=== PATIENT | female | born 1980 | race Caucasian/White ===

== ENCOUNTER 2021-11-27 09:09 | Emergency (ER) | payer SELFPAY ==
[2021-11-27 09:13] VITALS: BP 114/75; PULSE 78; RESP 17; TEMP 36.3; O2SAT 98; BMI 23.8
--- NOTE | 2021-11-27 09:37 | EX.ED.GENINJ ---
HPI <JOSE D Guzman - Last Filed: 11/27/21 10:03> History of Present Illness Chief Complaint: Laceration Narrative Narrative: 41-year-old female with no significant ankle history presents the [facility] apartment with a laceration to the right second third and fourth fingers. Patient's right second and fourth fingers were superficial however the tip of the third digit is more complicated. There is more blood. Patient states that she still has movement of all the extremities however the blood scared her and she is here for evaluation. Patient's tetanus vaccination is not up-to-date. Patient is here for evaluation [facility] <JOSE D Guzman - Last Filed: 11/27/21 10:03> [facility] Medical History no medical history Home Medications NK 11/27/21 [History Last Taken Unknown] Allergy/AdvReac Type Severity Reaction Status Date / Time Penicillins Allergy Hives Verified 11/27/21 09:11 Surgical History no surgical history Social History Smoking Status: Current every day smoker tobacco type: cigarettes ROS <JOSE D Guzman - Last Filed: 11/27/21 10:03> ROS ED ROS Narrative Constitutional: Negative for fever, chills, weight loss, weakness Eyes: Negative for vision loss, vision change, double vision ENT: Negative for any sore throat, ear pain, congestion Cardiovascular: Negative for any chest pain, tightness, palpitations Respiratory: Negative for any cough, sputum production, hemoptysis, dyspnea, dyspnea on exertion, orthopnea Gastrointestinal: Negative for any abdominal pain, nausea, vomiting, diarrhea, constipation, blood in stool, blood in vomit : Negative for any urinary frequency, dysuria, retention, blood in urine Muscle skeletal: Negative for any muscle joint pain, stiffness, myalgias, arthralgias, neck pain, back pain Neurological: Negative for any headache, syncope, numbness or tingling, dizziness Skin: Negative for any rashes, lumps, itching, abrasions. Positive for laceration to the right second third and fourth digit. Psychiatric: Negative for any depression, anxiety, stress, suicidal ideation, homicidal ideation Hematologic: Negative for any easy bruising, excessive bruising, easy bleeding Allergies: Negative for any eczema, hives, rash EXAM <JOSE D Guzman - Last Filed: 11/27/21 10:03> Physical Exam Narrative Exam Narrative: Vital signs reviewed. Extremities: No peripheral edema, no signs of gross trauma or deformity. Active full range of motion of all extremities. Patient has lacerations on the dorsal aspect of the second third and fourth digit. The patient's second laceration is superficial, patient's third digit is 1.5 cm long above the DIP joint on the dorsal aspect, this is the most severe of the lacerations however patient is able to flex and extend the entire finger. Patient's fourth digit has a corner of the distal nail however no nailbed injury. The only injury requiring sutures is on the third digit on the right hand. Neuro: Cranial nerves II through XII intact, no focal neurological deficits. Skin: Clean dry and intact with no rash, purpura, petechiae, vesicles or pustules. Backs/flank: No CVA tenderness, no midline spinal tenderness, no deformity. Psych: Normal mood and affect. No SI, HI or acute psychosis. Const Vital Signs: 11/27/21 09:13 Temperature 97.4 F L Temperature Source Temporal Pulse Rate 78 Respiratory Rate 17 Blood Pressure 114/75 Blood Pressure Mean 88 Pulse Ox 98 Oxygen Delivery Method Room Air <Dr. Bishop Aleman, DO - Last Filed: 11/27/21 10:11> Physical Exam Const Vital Signs: 11/27/21 09:13 Temperature 97.4 F L Temperature Source Temporal Pulse Rate 78 Respiratory Rate 17 Blood Pressure 114/75 Blood Pressure Mean 88 Pulse Ox 98 Oxygen Delivery Method Room Air PROC <JOSE D Guzman - Last Filed: 11/27/21 10:03> Procedures Lacerations Right third digit, hand: Length: 1.5 cm Depth: Skin Shape: Linear Prep: Sterile Conditions and Shure-Clens Laceration repair: Lidocaine Irrigated (ml): 200 Number of Sutures/Madina: 4 Suture Information: Ethilon Comment: Patient tolerated well. Sterile gloves, sterile drapes were used [facility] <JOSE D Guzman - Last Filed: 11/27/21 10:03> [facility] Treatment and Re-Evaluation Narrative: Patient appears well, patient appears nontoxic, vital signs are stable. Patient presents the [facility] with lacerations to the right second third and fourth digit. The right third digit however did need suture repair. This was a 1.5 cm horizontal laceration, patient has full range of motion of the right third digit, no signs or symptoms of tendon involvement. This area was cleansed, irrigated, search for foreign body, none were found. It was anesthetized, with sterile gloves, sterile drapes, 4 simple interrupted sutures of 5-0 Ethilon were placed. Patient placed in a finger splint, and have these removed in 10 to 12 days. <Dr. Bishop Aleman, DO - Last Filed: 11/27/21 10:11> [facility] Narrative Medical decision making narrative: I have personally performed a face to face assessment of the patient and have reviewed the CAL Note. I performed a substantive portion of the visit including all aspects of the following. My louis findings include: History: Patient presents with a laceration to her right middle finger that occurred today. Patient was using a knife at home when she accidentally slipped and cut herself. Patient states the bleeding stopped after several minutes of pressure. Patient denies any paresthesias or weakness. Patient is unsure of her last tetanus. Exam: Vital signs are stable. Patient is afebrile. Patient is in no acute distress. There is a 1.5 cm full-thickness linear laceration of the dorsal aspect of the right middle finger. There is minimal gapping of the wound margins. There is mild bleeding. There is also a superficial linear abrasion over the dorsal aspect of the distal phalanx of the right index finger. There is no bleeding noted. Sensation was intact to light touch in all digits. Capillary refill was less than 2 seconds in all digits. Strength is 5/5 in flexion and extension of the MP, PIP, and DIP joints of the right index and middle fingers. Medical Decision Making: Patient was given a tetanus booster. The wound was cleaned and anesthetized with 1% lidocaine via digital block. The wound was closed with 4 simple interrupted #5-0 Ethilon sutures. Bacitracin dressing was applied. Patient was instructed to follow-up with her primary care physician in 5 to 7 days for wound recheck and suture removal. Patient understood and was agreeable with the plan. All questions were answered. Discharge Plan Triage Chief Complaint: Laceration ED Midlevel Provider: Galen Coreas ED Provider: Bishop Aleman Dx/Rx/DC Orders Clinical Impression: Finger laceration Instructions: ED Laceration, Hand: All Closures Prescriptions: No Action NK Primary Care Provider: Care Physician,No Primary Referrals: Care Physician,No Primary [Primary Care Provider] - Activity Restrictions/Additional Instructions: Have your sutures out in 10 to 12 days Print Language: Bruneian Disposition Disposition: Home, Self Care
[2021-11-27] MEDS: Diphth,Pertuss(Acell),Tet Vac 0.5 ML Vial IM (09:43)
== END 2021-11-27 10:25 | disposition home or self-care (01) ==
PROVIDERS: Emergency Provider Emergency Medicine; Visit Provider Emergency Medicine
DX: S61.210A Laceration without foreign body of right index finger without damage to nail, initial encounter (principal); S61.212A Laceration without foreign body of right middle finger without damage to nail, initial encounter; S61.214A Laceration without foreign body of right ring finger without damage to nail, initial encounter; F17.210 Nicotine dependence, cigarettes, uncomplicated; W26.0XXA Contact with knife, initial encounter; Z23 Encounter for immunization; Y92.009 Unspecified place in unspecified non-institutional (private) residence as the place of occurrence of the external cause
CPT/HCPCS: 12001; 90471; 90715; 99283

== ENCOUNTER 2021-12-02 03:49 | Emergency (ER) | payer SELFPAY ==
[2021-12-02 03:50] VITALS: BP 114/78; PULSE 52; RESP 15; TEMP 36.6; O2SAT 98; BMI 23.5
--- NOTE | 2021-12-02 04:09 | EX.ED.UPPERE ---
HPI History of Present Illness Chief Complaint: Wound Check Detail of Chief Complaint: Check to the right middle finger Informant: patient Narrative Narrative: Patient presents to the emergency department requesting a wound check to her right middle finger. Patient states that she lacerated her finger last Tuesday which is 5 days ago. Patient was seen in the emergency department and had sutures placed and given an aluminum splint. Patient states that she wore the splint through the weekend and then took it off so she could go to work. Patient states that one of the stitches fell out. She complains of pain every time she bumps the finger. She denies any fevers. She denies any drainage from the wound. Patient is right-hand dominant. PFSH PFSH Home Medications clindamycin HCl 300 mg capsule (Cleocin HCl) 300 mg PO Q6H #40 CAPSULES 12/02/21 [Rx Last Taken Unknown] hydrocodone-acetaminophen 5-325mg 5mg-325mg 1 tab PO Q4H PRN PRN Pain 2 days #10 TABLETS 12/02/21 [Rx Last Taken Unknown] Allergy/AdvReac Type Severity Reaction Status Date / Time Penicillins Allergy Hives Verified 12/02/21 03:55 Social History Smoking Status: Current every day smoker tobacco type: cigarettes ROS ROS ED Review of Systems ROS Unobtainable: other Constitutional Constitutional ED: Reports lethargy; Denies chills, fever(s), sweats or weight loss Eyes Eyes: Denies blurry vision, change in vision or diplopia ENT ENT ED: Denies rhinorrhea or sore throat Cardiovascular Cardiovascular: Reports chest pain and racing heartbeat; Denies orthopnea Respiratory/Chest Respiratory/Chest: Reports dyspnea and dyspnea on exertion; Denies cough, orthopnea or sputum Gastrointestinal Gastrointestinal: Denies abdominal pain, diarrhea, nausea or vomiting Genitourinary Genitourinary ED: Denies dysuria, hematuria or urinary frequency Musculoskeletal Musculoskeletal: Reports other Details: Right middle finger pain ; Denies arthralgias, back pain, myalgias or neck pain Integumentary Denies abscess, Abrasions or rash Neurologic Neurologic: Denies headache(s) or weakness Psychiatric Psychiatric: Denies anxiety, depression or suicidal thoughts Endocrine Endocrinology: Denies polydipsia, polyphagia or polyuria Hematologic/Lymphatic Hematologic/Lymphatic: Denies easy bleeding, easy bruising or lymphadenopathy Allergic/Immunologic Allergic/Immunologic ED: Denies mouth swelling, tongue swelling or urticaria EXAM Physical Exam Const Vital Signs: 12/02/21 03:50 Temperature 97.9 F Temperature Source Oral Pulse Rate 52 L Respiratory Rate 15 Blood Pressure 114/78 Blood Pressure Mean 90 Pulse Ox 98 Oxygen Delivery Method Room Air Positive well nourished and well developed General Appearance ED: well developed and NAD HEENT Reports TM's clear and moist mucous membranes normocephalic and atraumatic; Negative for trauma or tenderness Tympanic Membrane ED: Yes TM's clear Eyes PERRL and EOMs intact bilaterally General Eye ED: Negative for pale conjunctiva or scleral icterus Neck no lymphadenopathy, supple and no JVD General: Negative for tenderness Chest Wall inspection of chest normal and palpation of chest normal Chest: Negative for tenderness Resp normal respiratory effort and clear to auscultation bilaterally Effort and Inspection: Negative for respiratory distress or pain with movement Auscultation: Negative for rhonchi, wheezes or diminished lung sounds Cardio regular rate, regular rhythm, S1 normal heart sound, S2 normal heart sound and no murmurs Peripheral Pulses: pulses 2+ throughout GI normal to inspection, nondistended, normoactive bowel sounds, soft to palpation, non-tender, non-distended and no masses Back/Spine no CVA tenderness and no thoracic nor lumbar tenderness Extremity normal to inspection Extremity Narrative: Right middle finger-patient has a healing wound just proximal to the nail on the dorsal surface of the distal phalanx measuring approximately 2 cm in length. There are [address] There are some mild soft tissue swelling but there is no erythema or significant cellulitic changes noted. Patient has no drainage from the wound and I attempted to push on the wound and express drainage and was unable to do so. General Extremety ED: Negative for edema General Extremity: Negative for edema Neuro oriented x3, CN's II-XII intact bilaterally, no sensory deficits noted and gait normal Sensorium / Orientation: awake, alert, oriented to person, oriented to place and oriented to time Motor Exam: strength 5/5 throughout and strength abnormal Psych mental status grossly normal Skin no rashes or lesions noted and no wounds MDM MDM MDM Narrative Medical decision making narrative: Patient here for a wound check. There are no significant changes associated with infection and the wound appears clean and healing well. I do not feel sutures need to be removed as I have low suspicion for infection at this time. Patient will have a clean dressing and aluminum splint placed over the finger to protect it. Patient will be started on clindamycin empirically and I will also give her a few [place] for pain. Patient to follow-up with primary care physician 5 days for suture removal. She is to return if increasing pain, redness, swelling, or condition should worsen anyway. Discharge Plan Triage Chief Complaint: Wound Check ED Provider: Neha Hines Dx/Rx/DC Orders Clinical Impression: Pain of right middle finger, Visit for wound check Instructions: ED Wound Check (No Infection) Prescriptions: New clindamycin HCl [Cleocin HCl] 300 mg capsule 300 mg PO Q6H Qty: 40 0RF hydrocodone-acetaminophen [hydrocodone-acetaminophen] 5-325 mg tablet 1 tab PO Q4H PRN PRN (Reason: Pain) 2 Days Qty: 10 0RF Primary Care Provider: Care Physician,No Primary Referrals: Bishop Crump MD [Med Staff - Forming Department End Finder] - 5 Days for suture removal Care Physician,No Primary [Primary Care Provider] - Disposition Disposition: Home, Self Care
[2021-12-02] MEDS: Clindamycin HCl 150 MG Capsule 300 MG PO (04:34)
== END 2021-12-02 04:44 | disposition home or self-care (01) ==
PROVIDERS: Emergency Provider Emergency Medicine; Visit Provider Emergency Medicine
DX: S61.212D Laceration without foreign body of right middle finger without damage to nail, subsequent encounter (principal); M79.644 Pain in right finger(s); F17.210 Nicotine dependence, cigarettes, uncomplicated
CPT/HCPCS: 99282

== ENCOUNTER 2022-01-11 09:02 | Emergency (ER) | payer SELFPAY ==
[2022-01-11 09:03] VITALS: BP 121/87; PULSE 63; RESP 16; TEMP 36.8; O2SAT 99; BMI 22.7
--- NOTE | 2022-01-11 09:09 | EDS_ITS ---
HPI History of Present Illness Chief Complaint: General Illness Narrative Narrative: Patient presents with nausea vomiting and loose stools that just started today. It started a few hours when she was at work. No current abdominal pain but she did have some intermittent abdominal cramping. She has no back pain or flank pain, she has no urinary symptoms. She denies . No cough congestion or recent fevers or chills. No sick contacts. PFSH PFSH Home Medications clindamycin HCl 300 mg capsule (Cleocin HCl) 300 mg PO Q6H #40 CAPSULES 12/02/21 [Rx Last Taken Unknown] hydrocodone-acetaminophen 5-325mg 5mg-325mg 1 tab PO Q4H PRN PRN Pain 2 days #10 TABLETS 12/02/21 [Rx Last Taken Unknown] dicyclomine 20 mg tablet 20 mg PO TID #10 tabs 01/11/22 [Rx Last Taken Unknown] ondansetron 4 mg disintegrating tablet 4 mg PO Q8H #10 tabs 01/11/22 [Rx Last Taken Unknown] Allergy/AdvReac Type Severity Reaction Status Date / Time Penicillins Allergy Hives Verified 01/11/22 09:04 Social History Smoking Status: Current every day smoker tobacco type: cigarettes ROS ROS ED ROS Narrative Past medical history: Reviewed Medications: Reviewed Social history: Smoker Review of systems: All systems negative except as indicated General: No fever Eyes: No visual changes ENT: No upper airway congestion, normal voice Neck: No neck pain Cardiovascular: No chest pain Respiratory: No shortness of breath or cough Gastrointestinal: Abdominal pain nausea vomiting and loose stools for the past 3 to 4 hours Genitourinary: No dysuria. Denies Musculoskeletal: Denies myalgias no difficulty with ambulation Skin: No rash Neurological: No memory loss, confusion or any focal weakness Psych: No recent behavioral changes Hematologic: No easy bleeding or easy bruising EXAM Physical Exam Narrative Exam Narrative: Physical exam General: Well nourished, Well developed, No Acute Distress. She is comfortable in the bed Head: Normocephalic, Atraumatic Eyes: Conjunctiva not pale ENT: Moist mucous membranes, I do not see any signs of dehydration Neck: Supple, Nontender, No lymphadenopathy Cardiovascular: Regular rate, Regular rhythm Respiratory: No distress, CTA bilaterally Abdomen: Soft, Nontender, Nondistended Back: Nontender, Normal Inspection. Negative for: CVA tenderness Extremities: Nontender, No edema Skin: Normal color, No rash Neurological: Alert, Normal Strength, Normal Sensation Psychological: Normal affect Const Vital Signs: 01/11/22 09:03 Temperature 98.3 F Temperature Source Oral Pulse Rate 63 Respiratory Rate 16 Blood Pressure 121/87 H Blood Pressure Mean 98 Pulse Ox 99 Oxygen Delivery Method Room Air MDM MDM MDM Narrative Medical decision making narrative: Patient has a normal exam normal vitals she likely has a gastroenteritis. I will treat her symptomatically this just darted a few hours ago therefore I do not believe labs are warranted and she does not need an IV since her mucous membranes are moist and she has a normal heart rate and blood pressure. Discharge Plan Triage Chief Complaint: General Illness ED Provider: Galen Ramires Dx/Rx/DC Orders Clinical Impression: Nausea & vomiting, Diarrhea Instructions: ED Vomiting (Adult) Prescriptions: New ondansetron 4 mg tablet,disintegrating 4 mg PO Q8H Qty: 10 0RF dicyclomine 20 mg tablet 20 mg PO TID Qty: 10 0RF No Action clindamycin HCl [Cleocin HCl] 300 mg capsule 300 mg PO Q6H Qty: 40 0RF hydrocodone-acetaminophen [hydrocodone-acetaminophen] 5-325 mg tablet 1 tab PO Q4H PRN PRN (Reason: Pain) 2 Days Qty: 10 0RF Primary Care Provider: Care Physician,No Primary Referrals: Nelda Alexander DO [Med Staff - Analytical Lab Analyst] - 3-5 Days Care Physician,No Primary [Primary Care Provider] - Disposition Disposition: Home, Self Care
[2022-01-11] MEDS: Ondansetron ODT 4 MG Tablet PO (09:39)
== END 2022-01-11 09:42 | disposition home or self-care (01) ==
LOC: ED 09:27
PROVIDERS: Emergency Provider Emergency Medicine; Visit Provider Emergency Medicine
DX: R19.7 Diarrhea, unspecified (principal); R11.2 Nausea with vomiting, unspecified; R10.9 Unspecified abdominal pain; F17.210 Nicotine dependence, cigarettes, uncomplicated
CPT/HCPCS: 99283

== ENCOUNTER 2022-02-01 19:09 | Emergency (ER) | payer SELFPAY ==
[2022-02-01 19:10] VITALS: BP 129/74; PULSE 99; RESP 16; TEMP 36.2; O2SAT 99; BMI 22.0
--- NOTE | 2022-02-01 20:29 | EX.ED.VIS.UR ---
HPI HPI - URI History of Present Illness Chief Complaint: Cough Narrative Narrative: 41-year-old female presenting with cough, congestion, body aches, sweats, chills. Patient states she has not checked her temperature. She states that over the weekend she was treating her symptoms with Tylenol and ibuprofen. She states that when she stopped taking that she started to feel worse again. She states that she has all the symptoms of COVID. She has not done [id number] test. She states that her grandpa is now sick. He has not been tested. She does not have any nausea, vomiting, diarrhea, constipation. ROS ROS ED Constitutional Constitutional ED: Reports chills, subjective and sweats Eyes Eyes: Denies change in vision or diplopia ENT ENT ED: Reports rhinorrhea Cardiovascular Cardiovascular: Denies chest pain or palpitations Respiratory/Chest Respiratory/Chest: Reports cough and dyspnea Gastrointestinal Gastrointestinal: Denies abdominal pain Genitourinary Genitourinary ED: Denies dysuria or hematuria Musculoskeletal Musculoskeletal: Reports myalgias; Denies arthralgias or neck pain Integumentary Denies abscess Neurologic Neurologic: Reports headache(s); Denies paresthesias or weakness Psychiatric Psychiatric: Denies anxiety or depression PFSH PFSH Home Medications clindamycin HCl 300 mg capsule (Cleocin HCl) 300 mg PO Q6H #40 CAPSULES 12/02/21 [Rx Last Taken Unknown] hydrocodone-acetaminophen 5-325mg 5mg-325mg 1 tab PO Q4H PRN PRN Pain 2 days #10 TABLETS 12/02/21 [Rx Last Taken Unknown] dicyclomine 20 mg tablet 20 mg PO TID #10 tabs 01/11/22 [Rx Last Taken Unknown] ondansetron 4 mg disintegrating tablet 4 mg PO Q8H #10 tabs 01/11/22 [Rx Last Taken Unknown] Allergy/AdvReac Type Severity Reaction Status Date / Time Penicillins Allergy Hives Verified 02/01/22 19:10 Social History Smoking Status: Current every day smoker tobacco type: cigarettes EXAM Physical Exam Const Vital Signs: 02/01/22 19:10 02/01/22 20:09 Temperature 97.2 F L Temperature Source Temporal Pulse Rate 99 Respiratory Rate 16 Respiratory Effort Normal Respiratory Depth Normal Respiratory Pattern Normal Blood Pressure 129/74 H Blood Pressure Mean 92 Pulse Ox 99 Oxygen Delivery Method Room Air Positive well nourished General Appearance ED: NAD; Negative for pallor HEENT Reports moist mucous membranes normocephalic Throat: posterior oropharynx normal Eyes PERRL and EOMs intact bilaterally General Eye ED: Negative for pale conjunctiva or scleral icterus Neck no lymphadenopathy Resp normal respiratory effort and clear to auscultation bilaterally Auscultation: Negative for rales, rhonchi or wheezes Cardio Rate: regular rate Rhythm: regular rhythm GI non-tender and non-distended Back/Spine no CVA tenderness Neuro oriented x3, CN's II-XII intact bilaterally and no sensory deficits noted Sensorium / Orientation: alert Psych mental status grossly normal Skin General Skin Exam: Negative for jaundice or pallor MDM MDM MDM Narrative Medical decision making narrative: Patient presenting with viral symptoms. She is on day 4 of her symptoms. Her lungs are clear to auscultation. Vital signs are stable she is afebrile. She is nonhypoxic and eating oxygen. I do not believe she needs imaging. I will test her for COVID and influenza. Tested negative for COVID and influenza. Again patient's vital signs are stable she is afebrile. Her exam is normal except for a mild cough. She is not requiring any oxygen. I do not believe she needs any blood work or imaging. She is counseled on findings. She will be discharged home in stable condition. Impression: 1. Viral syndrome Lab Data Attestation: I reviewed the patient's lab results. Discharge Plan Triage Chief Complaint: Cough ED Provider: Pedro Jones Dx/Rx/DC Orders Prescriptions: No Action clindamycin HCl [Cleocin HCl] 300 mg capsule 300 mg PO Q6H Qty: 40 0RF hydrocodone-acetaminophen [hydrocodone-acetaminophen] 5-325 mg tablet 1 tab PO Q4H PRN PRN (Reason: Pain) 2 Days Qty: 10 0RF ondansetron 4 mg tablet,disintegrating 4 mg PO Q8H Qty: 10 0RF dicyclomine 20 mg tablet 20 mg PO TID Qty: 10 0RF Primary Care Provider: Care Physician,No Primary Referrals: Care Physician,No Primary [Primary Care Provider] -
== END 2022-02-01 21:51 | disposition home or self-care (01) ==
PROVIDERS: Emergency Provider Student in an Organized Health Care Education/Training Program; Visit Provider Student in an Organized Health Care Education/Training Program
DX: B34.9 Viral infection, unspecified (principal); F17.210 Nicotine dependence, cigarettes, uncomplicated; Z20.822 Contact with and (suspected) exposure to COVID-19
CPT/HCPCS: 87428; 99282

== ENCOUNTER 2022-11-09 07:40 | Emergency (ER) | payer MEDICAID, SELFPAY ==
[2022-11-09 07:41] VITALS: BP 109/87; PULSE 79; RESP 14; TEMP 36.1; O2SAT 99; BMI 23.1
--- NOTE | 2022-11-09 07:46 | EDS_ITS ---
HPI History of Present Illness Chief Complaint: Chest Other [facility] Medical History Arthritis Asthma Hearing loss in left ear Home Medications clindamycin HCl 300 mg capsule (Cleocin HCl) 300 mg PO Q6H #40 CAPSULES 12/02/21 [Rx Last Taken Unknown] hydrocodone-acetaminophen 5-325mg 5mg-325mg 1 tab PO Q4H PRN PRN Pain 2 days #10 TABLETS 12/02/21 [Rx Last Taken Unknown] dicyclomine 20 mg tablet 20 mg PO TID #10 tabs 01/11/22 [Rx Last Taken Unknown] ondansetron 4 mg disintegrating tablet 4 mg PO Q8H #10 tabs 01/11/22 [Rx Last Taken Unknown] albuterol sulfate 90 mcg/actuation aerosol inhaler 1 inh inhalation ONCE 10/06/22 [History Last Taken Unknown] meloxicam 15 mg tablet 15 mg PO DAILY 10/06/22 [History Last Taken Unknown] Allergy/AdvReac Type Severity Reaction Status Date / Time Penicillins Allergy Hives Verified 11/09/22 07:41 Family History Mother Alcohol abuse Asthma Cancer Father Alcohol abuse Surgical History H/O knee surgery Social History Smoking Status: Current every day smoker tobacco type: cigarettes alcohol intake: current EXAM Physical Exam Const Vital Signs: 11/09/22 07:41 Temperature 97 F L Temperature Source Temporal Pulse Rate 79 Respiratory Rate 14 Blood Pressure 109/87 H Blood Pressure Mean 94 Pulse Ox 99 Oxygen Delivery Method Room Air MDM MDM MDM Narrative Medical decision making narrative: HISTORY OF PRESENT ILLNESS: 42-year-old male here for rib pain. States she was having sexual intercourse with her girlfriend. She states things got rough she noted cute onset of right lower rib pain. Notes pain with taking a deep breath. Denies any chest pain. Denies any cough. Denies any head trauma loss of consciousness. REVIEW OF SYSTEMS: Pertinent positives: [Rib pain Pertinent negatives: Shortness of breath, chest pain PHYSICAL EXAM: Nursing triage notes reviewed, Vital signs reviewed Constitutional: please see mdm Neck: No stridor, no JVD, full neck ROM Lungs: Clear to auscultation, No wheezing or rales. No increased work of breathing, no conversational dyspnea, no accessory muscle use, no nasal flaring. No respiratory distress noted, no flail chest noted, no crepitus noted to the chest Heart: Regular rate and rhythm, No murmurs, No rubs and No gallops, 2+ distal pulses (radial, femoral, posterior tibial) in all extremities Abdomen: Soft, there is no tenderness, rigidity, rebound or guarding, no obvious peritoneal signs, no palpable pulsatile abdominal masses, no auscultated abdominal bruit : No CVAT Extremities: No edema Neuro: No focal neurological deficits, cranial nerves II through XII intact, 5/5 strength in all extremities. Intact sensation to light touch in all extremities, 2+ reflexes bilateral patella tendons. Normal gait. No ataxia. Skin: No rash or lesions noted MEDICAL DECISION MAKING: Chief Complaint: Rib pain External records reviewed: No recent advanced imaging of the chest Factors affecting care: Arthritis, asthma ALL IMAGES (IF OBTAINED) HAVE BEEN PERSONALLY REVIEWED AND INTERPRETED BY MYSELF. [facility] Narrative: The patient was hemodynamically stable, afebrile, nontoxic-appearing. No evidence of crepitus, flail chest. Bilateral breath sounds. I considered the following differential diagnosis: Rib fracture, rib contusion, pulmonary contusion, pneumothorax, pneumonia I obtained an x-ray which showed no evidence of rib fracture. 35-year-old male here with concern for palpitations. patient likely some from rib contusion. No evidence pneumothorax pulm contusion or pneumonia. Patient is appropriate discharge. She was provided with an incentive spirometer and instructions to take [id number] anti-inflammatories as well as lidocaine patches. The patient and/or family, caregivers express understanding. The patient and/or family, caregivers agrees with the plan. Total critical care time today provided was at least 0 minutes. This excludes separately billable procedures. Critical care time (if documented) is secondary to the patient having high probability of clinically significant/life threatening deterioration in the patient's condition which required my urgent intervention. Shared decision making: I will have a discussion with the patient and or visitors regarding risk/benefits of further testing or admission. They will be made aware of of the risk/benefits inherent in this decision they will be given the opportunity to voice understanding. Radiography Chest X-Ray - ED: Read by ED Physician Diagnostic Testing: Clinical Impression(s) from Imaging Studies Ribs w/Chest X-Ray 11/09/22 08:05 IMPRESSION: RIBS: Normal x-ray examination of the ribs. CHEST: Normal x-ray examination of the chest. Electronically Signed: Angelito Bernstein MD at 8:58 EDT , X-rays personally reviewed by myself. No obvious evidence of fracture there is calcification noted in the right lower rib margin. Discharge Plan Triage Chief Complaint: Chest Other ED Provider: Dez Finley Dx/Rx/DC Orders Clinical Impression: Contusion of rib Instructions: Bone Contusion Prescriptions: No Action albuterol sulfate 90 mcg/actuation HFA aerosol inhaler 1 inh inhalation ONCE meloxicam 15 mg tablet 15 mg PO DAILY clindamycin HCl [Cleocin HCl] 300 mg capsule 300 mg PO Q6H Qty: 40 0RF hydrocodone-acetaminophen [hydrocodone-acetaminophen] 5-325 mg tablet 1 tab PO Q4H PRN PRN (Reason: Pain) 2 Days Qty: 10 0RF ondansetron 4 mg tablet,disintegrating 4 mg PO Q8H Qty: 10 0RF dicyclomine 20 mg tablet 20 mg PO TID Qty: 10 0RF Stand Alone Forms: ED Work / School Excuse Primary Care Provider: Linh Alvarado Referrals: Alvino Vázquez MD [Med Staff - [employer] Engineer] - Activity Restrictions/Additional Instructions: Thank you for trusting us with your care today! Please take Tylenol (2 pills, 650 mg), ibuprofen (2 pills, 400 mg) every 6 hours as needed for pain and fever control. Please go to your local pharmacy or drugstore and obtain lidocaine pain leaving patches. These are known as Salonpas lidocaine patches. Please return to the emergency department if your symptoms change or worsen. Please follow with your primary care physician for further outpatient evaluation and management. Disposition Disposition: Home, Self Care Discharge Date/Time: 11/09/22 10:06
--- NOTE | 2022-11-09 08:05 | RAD_ITS ---
STUDY: X-RAY - UNILATERAL RIBS ( RIGHT ) WITH CHEST REASON FOR EXAM: Female, 42 years old. Right lower rib pain TECHNIQUE - RIBS: 4 view(s) of the ribs. TECHNIQUE - CHEST: Single PA view of the chest. COMPARISON: None. FINDINGS - RIBS: Normal visualized ribs without a demonstrated fracture. FINDINGS - CHEST: The lungs are clear and expanded. There is no demonstrated pleural abnormality. Normal size heart. Normal mediastinum and gabby. Normal visualized pulmonary arteries. Normal visualized aortic arch and descending thoracic aorta. Normal visualized thoracic spine. Normal visualized ribs, clavicles, and shoulders. There is no demonstrated abnormality of the visualized soft tissue structures of the upper abdomen. RAD/Ribs Uni Min 3V w/PA Chest IMPRESSION: RIBS: Normal x-ray examination of the ribs. CHEST: Normal x-ray examination of the chest. Electronically Signed: Angelito Bernstein MD at 8:58 EDT ,
[2022-11-09] MEDS: Lidocaine 5% Patch 1 PATCH TOPICAL (08:21)
[2022-11-09] MEDS: Ibuprofen 200 MG Tablet 400 MG PO (08:22)
[2022-11-09] MEDS: Acetaminophen 325 MG Tablet PO (08:22)
--- NOTE | 2022-11-09 10:02 | ED.RN ---
request for discharge order at 10:00 am
== END 2022-11-09 10:06 | disposition home or self-care (01) ==
PROVIDERS: Emergency Provider Emergency Medicine; PCP Family Medicine; Visit Provider Emergency Medicine
DX: S20.219A Contusion of unspecified front wall of thorax, initial encounter (principal); F17.210 Nicotine dependence, cigarettes, uncomplicated; M19.90 Unspecified osteoarthritis, unspecified site; J45.909 Unspecified asthma, uncomplicated; X58.XXXA Exposure to other specified factors, initial encounter
CPT/HCPCS: 71101; 99283

== ENCOUNTER 2023-01-10 06:08 | Day surgery (SDC) | payer MEDICAID, SELFPAY ==
[2023-01-10] VITALS (7 sets, daily range): BP systolic 101–126; BP diastolic 61–103; PULSE 47–81; RESP 16–18; TEMP 36.6–36.8; O2SAT 100; BMI 22.1
--- NOTE | 2023-01-10 | COLBX_PTH ---
PATIENT: JERED GONSALVES LOC: [facility] U#:[id number] AGE/SX: 42/F ROOM: RE01/10/[address]: Dr. Pedro Clifford DO : 1980 BED: DIS: 01/10/2023 SPEC #: [id number] RECD: 01/10/23 12:30 STATUS: JANNETH REShaka #: [id number] LEX: 01/10/23 00:[address]: Pedro Clifford DEPT: SURGICAL PATHOLOGY RECD BY: Arturo Agustin ENTERED: 01/10/23 12:31 SP TYPE: COLON BX WOODY DR: Dr. Linh Alvarado DO Tissues: A - SPLENIC FLEXURE B - Sigmoid colon biopsy Procedures: Surgery Specimen Level IV HEADER OPERATION: Colonoscopy, polypectomy, hemostasis, spot marking PRE-OP DIAGNOSIS: Family history of colon cancer TISSUE SUBMITTED: A - Splenic flexure polyp, B - Sigmoid colon polyp MICROSCOPIC DIAGNOSIS A. Colonic polyp at splenic flexure, biopsy: Hyperplastic polyp. B. Sigmoid colon polyp, biopsy: Tubular adenoma. AM:fabiana 01/11/2023 MICROSCOPIC DESCRIPTION Slides are reviewed. GROSS DESCRIPTION A - Received in fixative is one container labeled with the patient's name and designated splenic flexure polyp. The specimen consists of one irregular fragment of light faulkner soft tissue that measures 0.3 x 0.3 x 0.1 cm. The specimen is totally submitted in one cassette. B - Received in fixative is one container labeled with the patient's name and designated sigmoid polyp. The specimen consists of two faulkner-pink polyps measuring 1.5 x 1.2 x 1.0 cm and 0.7 x 0.5 x 0.7 cm. Apparent base of both polyps are inked. The larger polyp is serially sectioned and smaller polyp is bisected. The entire specimen is submitted in two cassettes. / SJ:fabiana 01/10/2023 TC:5 CPT: 28140 x2
[2023-01-10] MEDS: Lactated Ringers 1,000 ML 15 ML IV (06:38)
--- NOTE | 2023-01-10 06:56 | PCM.HP.STD ---
[facility] - General General Date of Admission: 01/10/23 Date of Service: 01/10/23 Chief Complaint: Colon cancer screening [facility] Narrative JERED GONSALVES, is a 42 F who presents for a screening colonoscopy. She has a strong family history of colon cancer in first-degree relative prior to the age of 50. She is not have any abdominal pain. She does not have any chest pain or shortness of breath. She denies any weakness. She has no change in bowel habits. Overall she is in very good health. [facility] [place] Medical History (Updated 01/05/23 @ 14:24 by Elena Mathis) Anemia Arthritis Asthma Back pain Gastric reflux Hearing loss in left ear Migraine headache Smoker Wears glasses Home Medications albuterol sulfate 90 mcg/actuation aerosol inhaler 1 inh inhalation PRN ASTHMA 10/06/22 [History Last Taken Unknown] meloxicam 15 mg tablet 15 mg PO PRN PAIN 10/06/22 [History Last Taken Unknown] bisacodyl 5 mg tablet,delayed release 20 mg (4 x 5 mg) PO ONCE #4 tabs 12/22/22 [Rx Last Taken Unknown] polyethylene glycol 3350 17 gram/dose oral powder (Miralax) 238 g PO DAILY #238 grams 12/22/22 [Rx Last Taken Unknown] Allergy/AdvReac Type Severity Reaction Status Date / Time Penicillins Allergy Hives Verified 01/05/23 14:15 Family History Mother Alcohol abuse Asthma Cancer Father Alcohol abuse Surgical History (Updated 01/05/23 @ 14:24 by Elena Mathis) H/O knee surgery History of surgery on left wrist Social History Smoking Status: Current every day smoker tobacco type: cigarettes alcohol intake: current ROS Review of Systems ROS Unobtainable: other Constitutional Constitutional: Denies fatigue, fever(s), poor appetite, weight gain or weight loss ENT HEENT: Denies mouth lesions Cardiovascular Cardiovascular: Denies abdominal bloating, abdominal edema or abdominal pain Respiratory/Chest Respiratory/Chest: Denies change in mental status, change in phlegm color, chest congestion or chest tightness Gastrointestinal Gastrointestinal: Denies belching, bloating, change in bowel habits, change in stool character, chewing difficulty, coffee ground emesis, constipation, cramping, diarrhea, dyspepsia, dysphagia, early satiety, excessive flatus, fecal incontinence, heartburn, hematemesis, hematochezia, hemorrhoids, loose stools, melena, nausea, odynophagia, rectal bleeding, tenesmus, vomiting or weight changes Genitourinary Genitourinary: Denies abdominal discomfort, burning urination or itching Musculoskeletal Musculoskeletal: Reports as per HPI; Denies muscle weakness or myalgias Integumentary Integumentary: Denies jaundice Neurologic Neurologic: Denies lack of coordination or weakness Psychiatric Psychiatric: Denies confusion, depression, memory loss, mood swings, paranoia or suicidal ideation Endocrine Endocrinology: Denies systems reviewed and no addt'l complaints, except as documented Hematologic/Lymphatic Hematologic/Lymphatic: Denies anemia, easy bleeding, easy bruising or lymphadenopathy Allergic/Immunologic Allergic/Immunologic: Denies systems reviewed and no addt'l complaints, except as documented Vital Signs Vital Signs Vital Signs: 01/10/23 06:29 01/10/23 06:29 Pulse Rate 47 L Respiratory Rate 16 Respiratory Pattern Normal Blood Pressure 101/69 Blood Pressure Mean 79 Blood Pressure Source Monitor Blood Pressure Position Semi-Fowlers Blood Pressure Location Right Arm Pulse Ox 100 Oxygen Delivery Method Room Air Weight Weight: 136 lb 14.513 oz Body Mass Index (BMI) 22.1 Physical Exam Const alert General Appearance: cooperative Orientation / Consciousness: oriented to person HEENT hearing grossly normal bilaterally Head and Scalp: normal to inspection Face and Sinus: face symmetric Nose: external nose normal Mouth: oral and palatal mucosa normal Eyes conjunctivae normal General Eye: normal appearance of both eyes Neck full ROM General: normal visual inspection Lymph Lymphatic: no lymphadenopathy noted Chest inspection of chest normal and palpation of chest normal Chest: symmetrical chest wall rise Resp normal respiratory effort Effort and Inspection: able to speak in complete sentences Cardio regular rate GI non-distended Percussion: normal to percussion Rectal Exam: deferred Neuro Speech: speech normal Gait (Neuro): normal gait Assessment & Plan Assessment/Plan (1) Family history of colon cancer: PLAN: She will undergo colonoscopy. She was explained alternatives, risk, benefits include withstanding bleeding, infection, sepsis, perforation, need for emergent surgery . She will have an ASA of 2.
[2023-01-10] MEDS: Epinephrine (1 mg/ml) 1 MG/ML VIAL ×2 (07:24→07:30)
[2023-01-10] MEDS: 0.9% Normal Saline (Pres. free 10 ML Vial ×2 (07:24→07:26)
--- NOTE | 2023-01-10 07:54 | OP.CCLET_ITS ---
01/10/2023 Linh Lopez Do Re : Colonoscopy procedure for Nicolle Archuletan Dear John This procedure was performed on Tuesday, January 10, 2023. My impressions and recommendations are as follows: Impressions : - One 5 mm polyp at the splenic flexure, removed with a cold snare. Resected and retrieved. - One 40 mm polyp in the sigmoid colon, removed using injection-lift and a hot snare. Resected and retrieved. Injected. Clips were placed. Clip crime scene specialist: [employer]. Tattooed. - The examination was otherwise normal on direct and retroflexion views. Recommendations : - Discharge patient to home. - Full liquid diet for 3 days. - No aspirin, ibuprofen, naproxen, or other non-steroidal anti-inflammatory drugs for 2 weeks after polyp removal. - Await pathology results. - Repeat colonoscopy for surveillance based on pathology results. My findings are described in the full procedure note, which is enclosed. If I can be of further assistance, please feel free to contact me at . Sincerely, Pedro Clifford DO 01/10/2023 7:53:58 AM This report has been signed electronically.
--- NOTE | 2023-01-10 07:54 | OP.COLON_ITS ---
Patient Name: Nicolle Ferreira Procedure Date: 01/10/2023 6:57 AM Date of : 1980 Age: 42 Procedure: Colonoscopy Indications: Screening patient at increased risk: Family history of colorectal cancer in multiple 1st-degree relatives Providers: Pedro Clifford DO Referring MD: Pedro Clifford DO Medicines: Monitored Anesthesia Care Patient Profile: This is a 42 year old female. Refer to note in patient chart for documentation of history and physical. Last Colonoscopy: none. The patient's first colonoscopy is today. Complications: No immediate complications. Procedure: Pre-Anesthesia Assessment: - Prior to the procedure, a History and Physical was performed, and patient medications and allergies were reviewed. The patient is competent. The risks and benefits of the procedure and the sedation options and risks were discussed with the patient. All questions were answered and informed consent was obtained. Patient identification and proposed procedure were verified by the physician. Mental Status Examination: normal. Prophylactic Antibiotics: The patient does not require prophylactic antibiotics. Prior Anticoagulants: The patient has taken no anticoagulant or antiplatelet agents. ASA Grade Assessment: II - A patient with mild systemic disease. After reviewing the risks and benefits, the patient was deemed in satisfactory condition to undergo the procedure. The anesthesia plan was to use monitored anesthesia care (MAC). Immediately prior to administration of medications, the patient was re-assessed for adequacy to receive sedatives. The heart rate, respiratory rate, oxygen saturations, blood pressure, adequacy of pulmonary ventilation, and response to care were monitored throughout the procedure. The physical status of the patient was re-assessed after the procedure. After I obtained informed consent, the scope was passed under direct vision. Throughout the procedure, the patient's blood pressure, pulse, and oxygen saturations were monitored continuously. The Colonoscope was introduced through the anus and advanced to the cecum, identified by appendiceal orifice and ileocecal valve. The colonoscopy was performed without difficulty. Scope In: 7:07:46 AM Scope Withdrawal Time 0 hours 32 minutes 48 seconds Scope Out: 7:43:14 AM Total Procedure Duration Time 0 hours 35 minutes 28 seconds Findings: The perianal and digital rectal examinations were normal. A 5 mm polyp was found in the splenic flexure. The polyp was sessile. The polyp was removed with a cold snare. Resection and retrieval were complete. Verification of patient identification for the specimen was done. Estimated blood loss was minimal. A 40 mm polyp was found in the sigmoid colon. The polyp was semi-pedunculated. The polyp was removed with a saline injection-lift technique using a hot snare. Resection was complete, and retrieval was complete. Area was successfully injected with 10 mL of a 0.1 mg/mL solution of epinephrine for hemostasis of bleeding caused by the procedure. To prevent bleeding after the polypectomy, three hemostatic clips were successfully placed. Clip textile colorist dyer: [employer]. There was no bleeding at the end of the procedure. Area was tattooed with an injection of 3 mL of Paz ink. The exam was otherwise without abnormality on direct and retroflexion views. Impression: - One 5 mm polyp at the splenic flexure, removed with a cold snare. Resected and retrieved. - One 40 mm polyp in the sigmoid colon, removed using injection-lift and a hot snare. Resected and retrieved. Injected. Clips were placed. Clip textile colorist dyer: [employer]. Tattooed. - The examination was otherwise normal on direct and retroflexion views. Recommendation: - Discharge patient to home. - Full liquid diet for 3 days. - No aspirin, ibuprofen, naproxen, or other non-steroidal anti-inflammatory drugs for 2 weeks after polyp removal. - Await pathology results. - Repeat colonoscopy for surveillance based on pathology results. Procedure Code(s): --- Professional --- 93188, Colonoscopy, flexible; with removal of tumor(s), polyp(s), or other lesion(s) by snare technique 70046, Colonoscopy, flexible; with directed submucosal injection(s), any substance CPT copyright 2021 [employer]. All rights reserved. The codes documented in this report are preliminary and upon sleep technician review may be revised to meet current compliance requirements. Pedro Clifford DO 01/10/2023 7:53:58 AM This report has been signed electronically. Number of Addenda: 0 Note Initiated On: 01/10/2023 6:57 AM
== END 2023-01-10 08:57 | disposition home or self-care (01) ==
LOC: EN 06:09 → AC 06:10
PROVIDERS: PCP Family Medicine; Referring Provider Family Medicine; Visit Provider Internal Medicine Gastroenterology
PROC: 0DJD8ZZ Inspection of Lower Intestinal Tract, Via Natural or Artificial Opening Endoscopic (ICD-10-PCS; CPT 45378; principal; 2023-01-10 06:55)
DX: Z12.11 Encounter for screening for malignant neoplasm of colon (principal); K63.5 Polyp of colon; Z80.0 Family history of malignant neoplasm of digestive organs; F17.210 Nicotine dependence, cigarettes, uncomplicated; D12.5 Benign neoplasm of sigmoid colon; J45.909 Unspecified asthma, uncomplicated; K21.9 Gastro-esophageal reflux disease without esophagitis; Z79.899 Other long term (current) drug therapy
CPT/HCPCS: 45381; 45385; 88305; J7120; A4648; J2405; J3490

== ENCOUNTER 2023-03-17 11:00 | Emergency (ER) | payer MEDICAID, SELFPAY ==
[2023-03-17 11:01] VITALS: BP 112/80; PULSE 48; RESP 18; TEMP 37.7; O2SAT 98; BMI 23.0
--- NOTE | 2023-03-17 11:25 | RAD_ITS ---
STUDY: X-RAY CHEST REASON FOR EXAM: Female, 42 years old. Cough, SOB TECHNIQUE: PA and lateral views of the chest. COMPARISON: Comparison is made with prior study dated November 09, 2022. FINDINGS: EKG electrodes are seen. Hyperinflation. The lungs are clear. There is no demonstrated pleural abnormality. Normal size heart. Calcified left hilar lymph nodes. Normal visualized pulmonary arteries. Normal visualized aortic arch and descending thoracic aorta. Normal visualized thoracic spine. Normal visualized ribs, clavicles, and shoulders. There is no demonstrated abnormality of the visualized soft tissue structures of the upper abdomen. RAD/Chest PA and Lateral IMPRESSION: Hyperinflation. The lungs are clear. Electronically Signed: Angelito Bernstein MD at 12:14 EST ,
--- NOTE | 2023-03-17 11:25 | EDS_ITS ---
HPI HPI - URI History of Present Illness Chief Complaint: Chest Other Associated Symptoms Associated Symptoms: Positive for Nasal Congestion Narrative Narrative: 42-year-old female who denies significant past medical history except for being a smoker, presents with shortness of breath, cough, and upper respiratory infection type symptoms for the last 2 weeks. States earlier she had body aches as well. She has been taking [id number] medications at the recommendation of her primary care provider who she saw earlier. She has not been smoking because of her shortness of breath and cough. She states it seems to be getting worse. She has had runny nose and nasal congestion as well. She has occasional difficulty breathing and wheezing. ROS ROS ED ROS Narrative Constitutional: No fever, no chills. HEENT: No sore throat. No neck pain. No loss of vision. Positive rhinorrhea and nasal congestion. Cardiovascular: Occasional posttussive chest pain. No palpitations. No pedal edema. Respiratory: Positive cough, positive shortness of breath. Abdominal: No abdominal pain. No nausea. No vomiting. Genitourinary: No dysuria. No hematuria. Musculoskeletal: No myalgias. No arthralgias. Neurologic: No headaches. No dizziness. No lightheadedness. Skin: No rash. No change in color. Psychiatric: No depression. No anxiety. [facility] Medical History Anemia Arthritis Asthma Back pain Gastric reflux Hearing loss in left ear Migraine headache Smoker Wears glasses Home Medications meloxicam 15 mg tablet 15 mg PO PRN PAIN 10/06/22 [History Last Taken Unknown] albuterol sulfate 90 mcg/actuation aerosol inhaler (Ventolin HFA) 1 - 2 puff inhalation Q4H PRN PRN Wheezing #1 ea 03/17/23 [Rx Last Taken Unknown] azithromycin 250 mg tablet See Rx Instructions PO .COMPLEX #6 tabs 03/17/23 [Rx Last Taken Unknown] diclofenac sodium 75 mg tablet,delayed release 75 mg PO BID 03/17/23 [History Last Taken Unknown] prednisone 20 mg tablet 40 mg (2 x 20 mg) PO DAILY 5 days #10 TABLETS 03/17/23 [Rx Last Taken Unknown] Allergy/AdvReac Type Severity Reaction Status Date / Time Penicillins Allergy Hives Verified 03/17/23 11:01 Family History Mother Alcohol abuse Asthma Cancer Father Alcohol abuse Surgical History H/O knee surgery History of surgery on left wrist Social History Smoking Status: Current every day smoker tobacco type: cigarettes alcohol intake: current EXAM Physical Exam Narrative Exam Narrative: Afebrile. Vital signs noted. HEENT: Normocephalic. Atraumatic. PERRL, EOMI. Neck soft and supple. No point tenderness or step off. Cardiovascular: Regular rate and rhythm. No murmurs, rubs, or gallops appreciated. Respiratory: No tachypnea. Positive rhonchi bilaterally with occasional expiratory wheeze. Gastrointestinal: Abdomen soft, nontender, with normoactive bowel sounds. No rebound or guarding. Neurological: Awake. Alert. Nonfocal, nonlateralizing. Skin: No rash. Normal color. No pallor. Musculoskeletal: No pedal edema. Full range of motion extremities. Const Vital Signs: 03/17/23 11:01 03/17/23 11:12 03/17/23 11:13 Temperature 99.8 F H Temperature Source Temporal Pulse Rate 48 L Respiratory Rate 18 Respiratory Effort Normal Non-Labored Normal Non-Labored Respiratory Pattern Normal Blood Pressure 112/80 Blood Pressure Mean 90 Pulse Ox 98 Oxygen Delivery Method Room Air 03/17/23 11:40 Temperature Temperature Source Pulse Rate 44 L Respiratory Rate 18 Respiratory Effort Respiratory Pattern Normal Blood Pressure Blood Pressure Mean Pulse Ox Oxygen Delivery Method MDM MDM MDM Narrative Medical decision making narrative: The differential diagnosis is bronchitis versus postviral pneumonia. I have low suspicion for pulmonary embolism as she is not tachycardic and her pulse ox is 98% on room air. Her history and physical does not support this diagnosis. She will be given an albuterol aerosolized treatment and prednisone. Continuation of smoking cessation was discussed. I do feel that she requires imaging so chest x-ray and two-views was obtained. Chest x-ray interpreted by myself dependently in 2 views demonstrates no evidence of consolidation or pneumothorax. Upon repeat examination, she feels mildly improved after albuterol. At this point in time, she will be discharged with prescriptions for prednisone burst for 5 days, albuterol inhaler, and for azithromycin to cover any atypical pneumonia. She was given a note to be off work today and tomorrow as well. She will follow-up with her primary care provider. Disposition is discharged home in stable condition. Return instructions to the emergency department were reviewed. History & Record Review Discussion w/independent historian: Patient Additional record(s) reviewed:: Prior ED visit Radiography Diagnostic Testing: Clinical Impression(s) from Imaging Studies Chest X-Ray 03/17/23 11:25 IMPRESSION: Hyperinflation. The lungs are clear. Electronically Signed: Angelito Bernsetin MD at 12:14 EST , Discharge Plan Triage Chief Complaint: Chest Other ED Provider: Trent Miranda Dx/Rx/DC Orders Clinical Impression: URI (upper respiratory infection), Bronchitis Instructions: ED Bronchitis with Wheezing (Adult) Prescriptions: New albuterol sulfate [Ventolin HFA] 90 mcg/actuation HFA aerosol inhaler 1 - 2 puff inhalation Q4H PRN PRN (Reason: Wheezing) Qty: 1 0RF azithromycin 250 mg tablet See Rx Instructions .ROUTE .COMPLEX Qty: 6 0RF Rx Instructions: For 250 mg dose pack: take 500 mg today (day 1), then 250 mg for 4 days (days 2-5) prednisone 20 mg tablet 40 mg PO DAILY 5 Days Qty: 10 0RF No Action meloxicam 15 mg tablet 15 mg PO PRN diclofenac sodium 75 mg tablet,delayed release (DR/EC) 75 mg PO BID Patient Comments: take 1 tablet by mouth twice a day Stand Alone Forms: ED Work / School Excuse Primary Care Provider: Linh Alvarado Referrals: Linh Alvarado, [Primary Care Provider] - 1 Week if not improving Activity Restrictions/Additional Instructions: Stop smoking. Medications as directed. Disposition Disposition: Home, Self Care
[2023-03-17] MEDS: predniSONE 20 MG Tablet 40 MG PO (11:36)
[2023-03-17] MEDS: Albuterol 2.5 MG/3 ML VIAL.NEB. INHALATION (11:39)
[2023-03-17 11:40] VITALS: PULSE 44; RESP 18
== END 2023-03-17 13:42 | disposition home or self-care (01) ==
PROVIDERS: Emergency Provider Emergency Medicine; PCP Family Medicine; Visit Provider Emergency Medicine
DX: J06.9 Acute upper respiratory infection, unspecified (principal); F17.210 Nicotine dependence, cigarettes, uncomplicated; J45.909 Unspecified asthma, uncomplicated
CPT/HCPCS: 71046; 94640; 99283

== ENCOUNTER 2023-06-13 21:11 | Emergency (ER) | payer OTHER, SELFPAY ==
[2023-06-13 21:11] VITALS: BP 106/85; PULSE 89; RESP 16; TEMP 36.4; O2SAT 99; BMI 22.2
--- NOTE | 2023-06-13 21:29 | EX.ED.DYSGE1 ---
HPI <BERONICA Fitzgerald - Last Filed: 06/13/23 22:06> History of Present Illness Chief Complaint: Cough Narrative Narrative: Patient returns today due to cold-like symptoms that she has had for about the past week and a half. She reports that she has had a sore throat, nasal congestion, cough, and over the past few days developed right ear pain and right-sided facial pressure. She reports blood tinged sputum intermittently over the past week and a half. Her girlfriend has been sick with similar symptoms. She reports that she saw her PCP last Tuesday who told her that this was likely a virus, she has been taking [id number] cold and flu medications with minimal relief of her symptoms. She denies any history of PE/recent surgery/procedures/travel/immobilization. She denies any fever, chills, chest pain, shortness of breath. PFSH <BERONICA Fitzgerald - Last Filed: 06/13/23 22:06> [facility] Medical History Anemia Arthritis Asthma Back pain Gastric reflux Hearing loss in left ear Migraine headache Smoker Wears glasses Home Medications meloxicam 15 mg tablet 15 mg PO PRN PAIN 10/06/22 [History Last Taken Unknown] albuterol sulfate 90 mcg/actuation aerosol inhaler (Ventolin HFA) 1 - 2 puff inhalation Q4H PRN PRN Wheezing #1 ea 03/17/23 [Rx Last Taken Unknown] azithromycin 250 mg tablet See Rx Instructions PO .COMPLEX #6 tabs 03/17/23 [Rx Last Taken Unknown] diclofenac sodium 75 mg tablet,delayed release 75 mg PO BID 03/17/23 [History Last Taken Unknown] prednisone 20 mg tablet 40 mg (2 x 20 mg) PO DAILY 5 days #10 TABLETS 03/17/23 [Rx Last Taken Unknown] hydrocodone-acetaminophen 5-325mg 5mg-325mg 1 tab PO Q4H PRN PRN Pain 2 days #10 TABLETS 06/13/23 [Rx Last Taken Unknown] Allergy/AdvReac Type Severity Reaction Status Date / Time Penicillins Allergy Hives Verified 06/13/23 21:14 Family History Mother Alcohol abuse Asthma Cancer Father Alcohol abuse Surgical History H/O knee surgery History of surgery on left wrist Social History Smoking Status: Current every day smoker tobacco type: cigarettes alcohol intake: current ROS <BERONICA Fitzgerald - Last Filed: 06/13/23 22:06> ROS ED Constitutional Constitutional ED: Denies chills or fever(s) ENT ENT ED: Reports rhinorrhea and sore throat Cardiovascular Cardiovascular: Denies chest pain or palpitations Respiratory/Chest Respiratory/Chest: Reports cough; Denies dyspnea Gastrointestinal Gastrointestinal: Denies abdominal pain, nausea or vomiting Musculoskeletal Musculoskeletal: Denies arthralgias or myalgias Integumentary Denies rash Neurologic Neurologic: Denies weakness EXAM <BERONICA Fitzgerald - Last Filed: 06/13/23 22:06> Physical Exam Const Vital Signs: 06/13/23 21:11 06/13/23 21:39 Temperature 97.6 F L Temperature Source Temporal Pulse Rate 89 Respiratory Rate 16 Respiratory Effort Normal Non-Labored Respiratory Depth Normal Respiratory Pattern Normal Blood Pressure 106/85 H Blood Pressure Mean 92 Pulse Ox 99 Oxygen Delivery Method Room Air Room Air Positive well nourished, well developed and no apparent distress General Appearance ED: well developed HEENT Reports normocephalic, head/scalp atraumatic and TM's clear HEENT Narrative: Posterior pharynx slightly erythemic, no tonsillar exudate, uvula midline, no trismus, no drooling Tympanic Membrane ED: Yes TM's clear bilateral Mouth ED: Yes moist mucous membranes normal Eyes PERRL and EOMs intact bilaterally Neck full ROM and supple Chest Wall inspection of chest normal Resp normal respiratory effort and clear to auscultation bilaterally Cardio regular rate and regular rhythm GI soft to palpation, non-tender, non-distended and no masses Back/Spine normal ROM and normal to inspection Extremity normal to inspection and full ROM Neuro oriented x3, CN's II-XII intact bilaterally, moves all extremities, no focal motor deficits and no sensory deficits noted Sensorium / Orientation: awake and alert Psych mental status grossly normal and thought process normal Skin no rashes or lesions noted and no wounds <Dr. Neha Hines DO - Last Filed: 06/13/23 23:40> Physical Exam Const Vital Signs: 06/13/23 21:11 06/13/23 21:39 Temperature 97.6 F L Temperature Source Temporal Pulse Rate 89 Respiratory Rate 16 Respiratory Effort Normal Non-Labored Respiratory Depth Normal Respiratory Pattern Normal Blood Pressure 106/85 H Blood Pressure Mean 92 Pulse Ox 99 Oxygen Delivery Method Room Air Room Air [facility] <BERONICA Fitzgerald - Last Filed: 06/13/23 22:06> [facility] Narrative Medical decision making narrative: Patient presenting due to flulike symptoms that she has had over the past week and a half. She is nontoxic-appearing and in no acute distress, vitals are unremarkable. COVID, flu, RSV swabs will be obtained as well as a strep swab. Chest x-ray will be obtained to rule out pneumonia. Radiography Diagnostic Testing: Clinical Impression(s) from Imaging Studies Chest X-Ray 06/13/23 21:38 IMPRESSION: 1. No radiographic evidence of acute cardiopulmonary disease. 2. Left hilar calcifications suggesting prior granulomatous infection. Electronically Signed: Titus Robles DO at 22:19 [facility] , <Dr. Neha Hines DO - Last Filed: 06/13/23 23:40> [facility] Narrative Medical decision making narrative: Patient presenting due to flulike symptoms that she has had over the past week and a half. She is nontoxic-appearing and in no acute distress, vitals are unremarkable. COVID, flu, RSV swabs will be obtained as well as a strep swab. Chest x-ray will be obtained to rule out pneumonia. I have personally performed a face to face assessment of the patient and have reviewed the CAL Note. I performed a substantive portion of the visit including all aspects of the following. My louis findings include: History is [patient presents to the emergency department with complaint of a cough times a week and a half. She complains of right-sided ear pain and sore throat. Patient states her girlfriend was also ill with similar illness. Patient states that she think she was exposed to people at work that have been coming to work sick. She has not had a fever. She had a couple episodes of bringing up some phlegm that was blood-tinged. She denies chest pain. Patient denies recent travel or surgery. No history of PE or DVT.] Exam is [HEENT-PERRLA, EOMI. Cranial nerves II through XII grossly intact. TMs clear. Mucous membranes moist. No adenopathy. Mild pharyngeal erythema. No exudates. Uvula midline. No trismus. Cardiovascular-regular rate and rhythm without murmur or ectopy Lungs-clear to auscultation, chest wall stable without crepitus or subcu emphysema Abdomen-normoactive bowel sounds, soft, nontender, no rebound or rigidity, no peritoneal signs. Extremities-intact ?4, normal range of motion, normal pulses, atraumatic] Medical Decison Making [patient with URI symptoms times a week and a half. Will obtain COVID and flu testing as well as chest x-ray. Will also obtain a rapid strep screen.] Patient COVID flu and RSV testing was negative. Patient also had rapid strep screen that was negative. 1 view chest x-ray obtained also was negative. This point she states her main complaint is the sore throat and the pain into her right ear. Suspect she may have some eustachian tube dysfunction and recommended Claritin. Will also write her for a few [place] for severe pain. Advised to follow-up with primary care physician within next 5 to 7 days. Will give also referral to ENT if she cannot get into see her primary care physician. Other additions or changes: [None] Radiography Diagnostic Testing: Clinical Impression(s) from Imaging Studies Chest X-Ray 06/13/23 21:38 IMPRESSION: 1. No radiographic evidence of acute cardiopulmonary disease. 2. Left hilar calcifications suggesting prior granulomatous infection. Electronically Signed: Titus Robles DO at 22:19 EST , 1 view chest x-ray obtained interpreted by myself as no evidence of infiltrate or pneumothorax or acute process. Radiology in agreement. Discharge Plan Triage Chief Complaint: Cough ED Midlevel Provider: Andreea Chester ED Provider: Neha Hines Dx/Rx/DC Orders Clinical Impression: Viral URI Instructions: ED URI, Viral, No Abx (Adult) Prescriptions: New hydrocodone-acetaminophen [hydrocodone-acetaminophen] 5-325 mg tablet 1 tab PO Q4H PRN PRN (Reason: Pain) 2 Days Qty: 10 0RF No Action meloxicam 15 mg tablet 15 mg PO PRN diclofenac sodium 75 mg tablet,delayed release (DR/EC) 75 mg PO BID Patient Comments: take 1 tablet by mouth twice a day albuterol sulfate [Ventolin HFA] 90 mcg/actuation HFA aerosol inhaler 1 - 2 puff inhalation Q4H PRN PRN (Reason: Wheezing) Qty: 1 0RF azithromycin 250 mg tablet See Rx Instructions .ROUTE .COMPLEX Qty: 6 0RF Rx Instructions: For 250 mg dose pack: take 500 mg today (day 1), then 250 mg for 4 days (days 2-5) prednisone 20 mg tablet 40 mg PO DAILY 5 Days Qty: 10 0RF Primary Care Provider: LANDY LOVE Referrals: Linh Alvarado DO [Non-Staff] - 3-5 Days Disposition Disposition: Home, Self Care Discharge Date/Time: 06/13/23 23:33
--- NOTE | 2023-06-13 21:38 | RAD_ITS ---
INDICATION: cough EXAMINATION/TECHNIQUE: X-RAY - XR Chest 2 Views COMPARISON: March 17, 2023 chest x-ray. FINDINGS: LINES/DEVICES: None. LUNGS: Symmetric normal lung volumes. No airspace opacity or abnormal interstitial pattern. No nodule or mass. No pleural effusion or pneumothorax. MEDIASTINUM AND CARDIOVASCULAR STRUCTURES: Normal size and contour of the cardiomediastinal silhouette. No evidence of pulmonary vascular congestion. Left hilar calcifications. BONES AND SOFT TISSUES: No fracture or focal osseous lesion. RAD/Chest PA and Lateral IMPRESSION: 1. No radiographic evidence of acute cardiopulmonary disease. 2. Left hilar calcifications suggesting prior granulomatous infection. Electronically Signed: Titus Robles DO at 22:19 EST ,
--- OUTSIDE RECORDS SUMMARY | 2023-06-13 21:47 | XMS RPT_ITS | CCD ---
Author Name Unknown Address [id number] [place] [address] Organization [facility] Care Team Providers Care Yardmaster Name Role Phone Unavailable Primary Care Provider JACQUE Cee Referring Unavailable JACQUE IZQUIERDO Attending Unavailable MAST DENTAL ASSOCIATE-GRADES 7 8 TUTOR, LANDY Primary Care Physician [phone] SEKOU FLETCHER MD Attending Unavailable MAST DENTAL ASSOCIATE-GRADES 7 8 TUTOR, LANDY Primary Care Unavailabl e MAST DENTAL ASSOCIATE-GRADES 7 8 TUTOR, LANYD Attending Unavailabl e MAST DENTAL ASSOCIATE-GRADES 7 8 TUTOR, LANDY Primary Care Unavailabl leobardo KAMINSKI MD, BRINA W Attending Unavailable MAST DENTAL ASSOCIATE-GRADES 7 8 TUTOR, LANDY Primary Care Unavailabl e Allergies Allergy Classification Reported Allergen(s) Allergy Type Date of Onset Reaction(s) Facility (4 sources) Penicillins; Translations: [PENICILLINS] Drug Allergy 3 Hives, Itching [facility] Work Phone: (3 sources) Penicillin; Translations: [penicillin] Drug Allergy Weal (disorder) [facility] Medications Current Medications Medication Drug Class(es) Dates Sig (Normalized) Sig (Original) acetaminophen 500 mg oral tablet (1 source) Start: 12-28-2022 acetaminophen 500 mg oral tablet Dose : 1,000 mg = 2 tab(s), Oral, TID, PRN pain or fever, 0 Refill(s) Start Date: 12/28/22 Status: Ordered Albuterol (3 sources) beta2-Adrenergic Agonist Start: 06-18-2022 albuterol 0 Refill(s) Start Date: 06/18/22 Status: Ordered cyclobenzaprine hydrochloride 10 mg oral tablet (2 sources) Muscle Relaxant Start: 02-12-2023 End: 02-17-2023 cyclobenzaprine 10 mg oral tablet Dose : 10 mg = 1 tab(s), Oral, TID, prn chest wall spasm/pain, # 15 tab(s), 0 Refill(s), 02/17/23 12:45:00 PM EDT Start Date: 02/12/23 Stop Date: 02/17/23 Status: Ordered 24 hr nicotine 0.292 mg/hr transdermal system (3 sources) Cholinergic Nicotinic Agonist Start: 01-10-2023 End: 01-12-2024 apply 1 dose transdermal route once daily nicotine 7mg / 24hrs transdermal patch Dose = 1 patch(es), Transdermal, qDay, # 21 patch(es), 1 Refill(s), Pharmacy: [facility] #[id number], 167, cm, 11/24/22 14:01:00 EDT, Height, kg, 12/28/22 12:01:00 EDT, Dosing Weight Start Date: 01/10/23 Stop Date: 01/12/24 Status: Ordered Completed/Discontinued Medications Medication Drug Class(es) Dates Sig (Normalized) Sig (Original) meloxicam 15 mg oral tablet (3 sources) Nonsteroidal Anti-inflammatory Drug Start: 11-03-2022 End: 01-02-2023 Mobic 15 mg oral tablet Dose : 15 mg = 1 tab(s), Oral, qDay, PRN Pain, # 30 tab(s), 1 Refill(s), Pharmacy: [facility] #[id number], 167.9, cm, 09/13/22 11:11:00 EDT, Height, kg, 09/13/22 11:11:00 EDT, Dosing Weight Start Date: 11/03/22 Stop Date: 01/02/23 Status: Ordered Problems Problem Classification Problem Date Documented Date Episodic/Chronic Asthma (3 sources) Asthma 06-18-2022 Chronic Immunizations and screening for infectious disease (4 sources) Patient encounter status; Translations: [Encounter for screening for human papillomavirus (HPV)] Episodic Other ear and sense organ disorders (3 sources) Hearing loss of left ear 07-09-2022 Chronic Other lower respiratory disease (1 source) Rib pain 11-24-2022 Episodic Other nervous system disorders (3 sources) Carpal tunnel syndrome 06-18-2022 Chronic Other non-traumatic joint disorders (3 sources) Arthritis of hand 06-18-2022 Chronic Other screening for suspected conditions (not mental disorders or infectious disease) (6 sources) Cancer cervix screening status; Translations: [Encounter for screening for malignant neoplasm of cervix] Onset: 06-18-2022 Episodic Residual codes; unclassified (3 sources) Family history of colorectal cancer 07-09-2022 Episodic Residual codes; unclassified (2 sources) Family history of cancer of colon 09-01-2022 Episodic Residual codes; unclassified (2 sources) Family history of polyp of colon 09-01-2022 Episodic Spondylosis; intervertebral disc disorders; other back problems (3 sources) Low back pain 06-18-2022 Episodic Superficial injury; contusion (1 source) Contusion of rib 11-24-2022 Episodic Unclassified (7 sources) Patient encounter status 07-09-2022 Results Test Name Value Interpretation Reference Range Facil ity Vital Signs Date Time Vital Sign Value Performing Clinician Facility 02-12-2023 11:51-0400 Blood Pressure Location SEKOU FLETCHER MD [facility] 02-12-2023 11:51-0400 Body temperature 98.6 [degF] SEKOU FLETCHER MD [facility] 02-12-2023 11:51-0400 Diastolic Blood Pressure Non-Invasive 76 1 SEKOU FLETCHER MD [facility] 02-12-2023 11:51-0400 Heart rate 76 /min SEKOU FLETCHER MD [facility] 02-12-2023 11:51-0400 Respiratory rate 16 /min SEKOU FLETCHER MD [facility] 02-12-2023 11:51-0400 Systolic Blood Pressure Non-Invasive 120 1 SEKOU FLETCHER MD [facility] 09-13-2022 12:52-0400 Diastolic Blood Pressure Non-Invasive 79 1 BRINA KAMINSKI MD [facility] 09-13-2022 12:52-0400 Heart rate 48 /min BRINA KAMINSKI MD [facility] 09-13-2022 12:52-0400 Respiratory rate 14 /min BRINA KAMINSKI MD [facility] 09-13-2022 12:52-0400 Systolic Blood Pressure Non-Invasive 109 1 BRINA KAMINSKI MD [facility] 09-13-2022 12:39-0400 Diastolic Blood Pressure Non-Invasive 72 1 BRINA KAMINSKI MD [facility] 09-13-2022 12:39-0400 Heart rate 58 /min BRINA KAMINSKI MD [facility] 09-13-2022 12:39-0400 Respiratory rate 15 /min BRINA KAMINSKI MD [facility] 09-13-2022 12:39-0400 Systolic Blood Pressure Non-Invasive 105 1 BRINA KAMINSKI MD [facility] 09-13-2022 12:25-0400 Diastolic Blood Pressure Non-Invasive 69 1 BRINA KAMINSKI MD [facility] 09-13-2022 12:25-0400 Heart rate 57 /min BRINA KAMINSKI MD [facility] 09-13-2022 12:25-0400 Respiratory rate 18 /min BRINA KAMINSKI MD [facility] 09-13-2022 12:25-0400 Systolic Blood Pressure Non-Invasive 96 1 BRINA KAMINSKI MD [facility] 09-13-2022 12:20-0400 Respiratory Rate - Anes 0 br/min BRINA KAMINSKI MD [facility] 09-13-2022 12:15-0400 Respiratory Rate - Anes 18 br/min BIRNA KAMINSKI MD [facility] 09-13-2022 12:10-0400 Respiratory Rate - Anes 0 br/min BRINA KAMINSKI MD [facility] 09-13-2022 11:11-0400 Blood Pressure Location BRINA KAMINSKI MD [facility] 09-13-2022 11:11-0400 Body height 167.9 cm BRINA KAMINSKI MD [facility] 09-13-2022 11:11-0400 Body temperature 96.98 [degF] BRNIA KAMINSKI MD [facility] 09-13-2022 11:11-0400 Body weight 66 kg BRINA KAMINSKI MD [facility] 09-13-2022 11:11-0400 Body weight 23.41 kg/m2 BRINA KAMINSKI MD [facility] 09-13-2022 11:11-0400 Heart rate 45 /min BRINA KAMINSKI MD [facility] 06-11-2022 08:11-0500 Body height 168.9 cm Jacque Cathlamet DENTAL ASSOCIATE.GRADES 7 8 TUTOR Work Phone: [facility] 06-11-2022 08:11-0500 Body weight 63.59 kg Jacque Felecia DENTAL ASSOCIATE.GRADES 7 8 TUTOR Work Phone: [facility] 06-11-2022 08:11-0500 Diastolic blood pressure 64 mm[Hg] Jacque Felecia DENTAL ASSOCIATE.GRADES 7 8 TUTOR Work Phone: [facility] 06-11-2022 08:11050 Systolic blood pressure 120 mm[Hg] Jacque Cathlamet DENTAL ASSOCIATE.GRADES 7 8 TUTOR Work Phone: [facility] Encounters Encounter Date Encounter Type Care Provider Facility Start: 02-12-2023 End: 02-12-2023 Emergency department patient visit SEKOU FLETCHER MD Facility:B Start: 02-12-2023 End: 02-12-2023 Emergency department patient visit SEKOU FLETCHER MD [facility] Start: 09-13-2022 End: 09-13-2022 ambulatory BRINA KAMINSKI MD Facility:[facility] Start: 09-13-2022 End: 09-13-2022 Minor Procedure BRINA KAMINSKI MD [facility] Start: 07-09-2022 End: 07-10-2022 ambulatory LANDY MAST DENTAL ASSOCIATE-GRADES 7 8 TUTOR Facility:[facility] Start: 07-09-2022 End: 07-09-2022 Gynecological examination normal LANDY MAST DENTAL ASSOCIATE-GRADES 7 8 TUTOR [facility] Start: 07-09-2022 End: 07-09-2022 Patient encounter procedure LANDY MAST DENTAL ASSOCIATE-GRADES 7 8 TUTOR [facility] Start: 06-21-2022 Documentation procedure Mammog pau Coordinator [facility] Start: 06-21-2022 Letter encounter Mammography Coordinator [facility] Department Start: 06-18-2022 End: 06-18-2022 ambulatory JACQUE FELECIA Facility:[facility] Start: 06-18-2022 End: 06-18-2022 Subsequent hospital visit by physician Screen Mammo [facility] Mammogram Procedures Date Procedure Procedure Detail Performing Clinician Start: 09-13-2022 Colonoscopy BRINA KAMINSKI MD Start: 06-18-2022 End: 06-18-2022 Mammography Jacque Felecia DENTAL ASSOCIATE.C [employer] WORK[employer] Work Phone: Start: 06-11-2022 Microscopic examinat ion of cervical Papanicolaou smear and Human papillomavirus deoxyribonucleic acid detection cotesting LANDY MAST DENTAL ASSOCIATE-GRADES 7 8 TUTOR Knee region structur e (body structure) LANDY MAST DENTAL ASSOCIATE-GRADES 7 8 TUTOR Plan of Treatment Date Care Activity Detail Author Start: 11-28-2031 Urine microalbumin profile DTaP,Tdap,Td Vaccine (2 - Td or Tdap) [facility] Start: 06-11-2027 HPV TESTING HPV TESTING [facility] Start: 06-11-2027 PAP TESTING PAP TESTING [facility] Start: 06-18-2023 Mammography [facility] Start: 12-31-2022 Influenza vaccination Influenza Vaccine (#1) [facility] Start: 05-02-2022 DEPRESSION ASSESSMENT DEPRESSION ASSESSMENT [facility] Start: 12-31-2021 Influenza vaccination INFLUENZA (#1) [facility] Start: 2020 Mammography MAMMOGRAM [facility] Start: 2010 HPV TESTING HPV TESTING [facility] Start: 2001 PAP TESTING PAP TESTING [facility] Start: 10-24-1999 Urine microalbumin profile DTAP,TDAP,TD (1 - Tdap) [facility] Start: 1998 HEPATITIS C SCREENING HEPATITIS C SCREENING [facility] Start: 1998 HIV SCREENING HIV SCREENING [facility] Start: 1986 PNEUMOCOCCAL (1 - PCV) PNEUMOCOCCAL (1 - PCV) [facility] Start: 1986 Pneumococcal vaccination Pneumococcal Vaccine (1 - PCV) [facility] Start: 04-24-1981 COVID-19 VACCINE (#1) COVID-19 VACCINE (#1) [facility] Start: 1980 HEPATITIS B (1 of 3 - 3-dose series) HEPATITIS B (1 of 3 - 3-dose series) [facility] Start: 1980 Hepatitis B Vaccine (1 of 3 - 3-dose series) Hepatitis B Vaccine (1 of 3 - 3-dose series) [facility] End: 07-11-2023 ROSALINA SCREENING ROSALINA SCREENING Radiology Routine Encounter for screening mammogram for breast cancer 1 Occurrences starting 06/11/2022 until 07/11/2023 [facility] Work Phone: Immunizations Immunization Date Immunization Notes Care Provider Fa debi 11-27-2021 tetanus toxoid, redu norah diphtheria toxoid, and acellular pertussis vaccine, adsorbed LANDY MAST DENTAL ASSOCIATE-GRADES 7 8 TUTOR [facility] Payers Date Payer Category Payer Unknown [id number] 2022 Medicaid [id number] 2022 Medicaid [id number] 1980 Unknown [id number] 1980 Unknown [id number] 1980 Unknown [id number] Social History Date Type Detail Facility Start: 06-11-2022 Tobacco smoking status NHIS Smokes tobacco daily [facility] Work Phone: History of tobacco use Cigarette Smoker [facility] Work Phone: Start: 06-11-2022 Tobacco use and exposure Smokeless tobacco non-user [facility] Work Phone: Start: 06-11-2022 Alcohol intake Current drinke r of alcohol (finding) [facility] Start: 06-11-2022 Alcohol Comment [facility] Start: 1980 Sex Assigned At Not on file [facility] Start: 06-18-2022 Tobacco smoking status Heavy tobacco smoker (finding) [facility] Sex Assigned At Sex [facility] Start: 06-11-2022 History of Social function [facility] Start: 06-11-2022 Tobacco use panel [facility] National Score (1-100), lower number is lower risk 96 [facility] NEGATED: Highlighted rowStart: NINF History of tobacco use Passive smoker [facility] Work Phone: Functional Status Date Assessment Result Facility 02-12-2023 [facility] Functional Status ID band on [facility] 09-13-2022 Functional Status Activity Statu s ADL Sleeping quietly with easy respirations [facility] 09-13-2022 Functional Status Maintained, Less than 8 hours [facility] Mental Status Date Assessment Result Facility 02-12-2023 Mental Status Orientation Oriented x 4 [facility] 09-13-2022 Mental Status Orientation Oriented x 4 [facility] 09-13-2022 [facility] Clinical Notes 06-11-2022 to 02-12-2023 Letter - Mammography Coordinator - 06/21/2022 9:13 AM Mary Mitchell, RT(R) - 06/18/2022 2:30 PM Ema Izquierdo APRN.GRADES 7 8 TUTOR - 06/11/2022 8:11 AM EST Note Date & Type Note Facility 02-12-2023 Hospital Discharg e instructions Patient Education 02/12/2023 12:47:58 Smoking Cessation How to Quit Smoking Smoking is a hard habit to break. About half of all people who have ever smoked have been able to quit. Most people who still smoke want to quit. Here are some of the best ways to stop smoking. Keep in mind the health benefits of quitting The health benefits of quitting start right away. They keep improving the longer you go without smoking. Knowing this can help inspire you to stay on track. These benefits occur at any age. If you are 17 or 70, quitting is a good choice. Some of the health benefits after your last cigarette include: 20 minutes: Your blood pressure and pulse return to normal. 8 hours: Your oxygen levels return to normal. 2 days: Your ability to smell and taste start to improve as damaged nerves regrow. 2 to 3 weeks: Your circulation and lung function improve. 1 to 9 months: Your coughing, congestion, and shortness of breath decrease. Your tiredness decreases. 1 year: Your risk of heart attack decreases by half. 5 years: Your risk of lung cancer decreases by half. Your risk of stroke becomes the same as a nonsmoker s. Go cold turkey Most former smokers quit cold turkey. This means stopping all at once. Trying to cut back slowly often doesn't work as well. This may be because it continues the habit of smoking. Also, you may inhale more smoke while smoking fewer cigarettes. This leads to the same amount of nicotine in your body. Get support Support programs can be a big help, especially for heavy smokers. These groups offer lectures, ways to change behavior, and peer support. Here are some ways to find a support program: Free national quitline 435-HDRJ-ZBI (297-856-1843) [facility] quit-smoking programs [employer] 890-468-1831 [employer] 032-034-8834 Support at home is important too. Family and friends can offer praise and reassurance. If the smoker in your life finds it hard to quit, encourage them to keep trying. Try wvas-cmm-izbxjry medicine Nicotine replacement therapy may make it easier to quit. Some aids are available without a prescription. These include a nicotine patch, gum, and lozenges. But it is best to use these under the care of your healthcare provider. The skin patch gives a steady supply of nicotine. Nicotine gum and lozenges give short-time doses of low levels of nicotine. Both methods reduce the craving for cigarettes. If you have nausea, vomiting, dizziness, weakness, or a fast heartbeat, stop using these products. See your healthcare provider. Ask about prescription medicine After reviewing your smoking patterns and past attempts to quit, your doctor may offer a prescription medicine such as bupropion, varenicline, a nicotine inhaler, or nasal spray. Each has advantages and side effects. Your doctor can review these with you. Keep trying Most smokers make many attempts at quitting before they are successful. It s important not to give up. For more information For more on how to quit smoking, try these online resources: Go to Smokefree.gov. Read Clearing the Air from the National [employer] at smokefree.gov/sites/default/files /pdf/ptmokdnx-llm-von-accessible. pdf. 9892-0830 [employer]. [address] [place] [address], [place] [address]. All rights reserved. This information is not intended as a substitute for professional medical care. Always follow your healthcare professional's instructions. 02/12/2023 12:47:49 Rib Contusion or Minor Fracture Rib Contusion or Minor Fracture A rib contusion is a bruise to one or more rib bones. It may cause pain, tenderness, swelling, and a purplish color to the skin. There may be a sharp pain with each breath. A rib contusion takes anywhere from a few days to a few weeks to heal. A minor rib fracture or break may cause the same symptoms as a rib contusion. The small crack may not be seen on a regular chest X-ray. Treatment for both problems is basically the same. Home care You may use oyrl-rxh-wpkbmeo pain medicine to control pain, unless another pain medicine was prescribed. If you have chronic liver or kidney disease or ever had a stomach ulcer or GI (gastrointestinal) bleeding, talk with your healthcare provider before using these medicines. Rest. Don't lift anything heavy or do any activity that causes pain. Apply an ice pack over the injured area for 15 to 20 minutes every 1 to 2 hours. You should do this for the first 24 to 48 hours. To make an ice pack, put ice cubes in a plastic bag that seals at the top. Wrap the bag in a clean, thin towel or cloth. Never put ice or an ice pack directly on the skin. Continue with ice packs as needed for the relief of pain and swelling. The first 3 to 4 weeks of healing will be the most painful. If your pain is not under control with the treatment given, call your healthcare provider. Sometimes a stronger pain medicine may be needed. A nerve block can be done in case of severe pain. It will numb the nerve between the ribs. Follow-up care Follow up with your healthcare provider, or as advised. If X-rays were taken, you will be told of any new findings that may affect your care. Call 911 Call 911 if you have: Dizziness, weakness or fainting Shortness of breath with or without chest discomfort New or worsening pain When to seek medical advice Call your healthcare provider right away if any of these occur: Fever of 100.4 F (38 C) or higher, or as directed by your healthcare provider Chills Stomach pain, vomiting [phone] [employer]. [address] [place] [address]. All rights reserved. This information is not intended as a substitute for professional medical care. Always follow your healthcare professional's instructions. 02/12/2023 12:47:42 CHEST WALL STRAIN(CUSTOM) Chest Strain You have a chest strain. This happens when the muscles between the ribs stretch and tear. This may occur when you have a severe cough. It may also happen after strenuous lifting or twisting injuries of the upper back. A chest strain usually causes pain when you move or take a deep breath. The strain may take a few days to a few weeks to heal. Home care Follow these guidelines when caring for yourself at home: Rest. Don t do any heavy lifting or strenuous activity. Don t do any activity that causes pain. If you have a severe cough, use a cough syrup with dextromethorphan, unless another cough medicine was prescribed. If you have high blood pressure, check with your health care provider or pharmacist before using an tpgq-ekr-mxfpyrm cough medicine. You may use acetaminophen or ibuprofen to control pain, unless another medicine was prescribed. If you have chronic liver or kidney disease, talk with your provider before using these medicines. Also talk with your provider if you ve had a stomach ulcer or GI bleeding. Follow-up care Follow up with your health care provider, or as advised. When to seek medical advice Call your health care provider right away if any of these occur: A change in the type of pain. This means if it feels different, gets worse, lasts longer, or begins to spread into your shoulder, arm, neck, jaw, or back. Pain doesn t go away in 1 week Shortness of breath, difficulty breathing, or fast breathing Pain gets worse when you breathe Cough with dark-colored sputum (phlegm) or blood Weakness, dizziness, or fainting Fever of 101 F (38.3 C) or higher, or as directed by your health care provider [phone] [employer]. [address] [place] [address]. All rights reserved. This information is not intended as a substitute for professional medical care. Always follow your healthcare professional's instructions. Follow Up Care 02/12/2023 11:42:30 With:LANDY LOVE Address: [address] [facility] [place], [place] [id number]- [phone] Business (1) When:2-4 days Comments:Follow-up as neededMay use aleve and tylenol. Spirometer 10 puffs/hr while awake. Vaporizor at bedside. Return for symptoms as described. Avoid smoking till better. [facility] 02-12-2023 Note Discharge Instructions Thank you for allowing [facility] to assist you with your healthcare needs. The following is important discharge information regarding your hospital visit. Diagnosis from Today's Visit Rib/trunk pain-swelling What to Do Next Instructions from Your Care Team No qualifying data available. Post Acute Orders No qualifying data available. You Need to Schedule the Following Appointments Follow Up with LANDY LOVE When Within 2-4 days Why: Follow-up as needed May use aleve and tylenol. Spirometer 10 puffs/hr while awake. Vaporizor at bedside. Return for symptoms as described. Avoid smoking till better. Where: [address] [facility] [place] [address]- [phone] Business (1) Allergies penicillin (Hives) Medications Please ask your primary doctor or pharmacist before taking any other medication not listed, including over the counter drugs, herbal medications, vitamins and or supplements as they may interact with your home medications. What How Much When Instructions Last Dose Changed cyclobenzaprine 10 Milligram by mouth Changed cyclobenzaprine (cyclobenzaprine 10 mg oral tablet) 1 tab(s) by mouth Three (3) times a day prn chest wall spasm/ pain Printed Prescription Unchanged acetaminophen (acetaminophen 500 mg oral tablet) 2 tab(s) by mouth Three (3) times a day as needed for pain or fever Unchanged albuterol Unchanged meloxicam (Mobic 15 mg oral tablet) 1 tab(s) by mouth Once a day as needed for Pain Duration: 30 Days Unchanged nicotine (nicotine 7mg / 24hrs transdermal patch) 1 patch(es) Transdermal Once a day Please take this list to your next doctor s visit. Bring all medications you take, including over the counter medications, herbals and other supplements with you to your doctor s visit. Patients and families are reminded to discard old lists and to update any records with all medication providers or retail pharmacies. Medication Leaflets cyclobenzaprine (syleobardo nulloe ERNESTINE caruso preen) Amrix, Fexmid What is the most important information I should know about cyclobenzaprine? You should not use cyclobenzaprine if you have a thyroid disorder, heart block, congestive heart failure, a heart rhythm disorder, or you have recently had a heart attack. Do not use cyclobenzaprine if you have taken an MAO inhibitor in the past 14 days, such as isocarboxazid, linezolid, phenelzine, rasagiline, selegiline, or tranylcypromine. What is cyclobenzaprine? Cyclobenzaprine is a muscle relaxant. It works by blocking nerve impulses (or pain sensations) that are sent to your brain. Cyclobenzaprine is used together with rest and physical therapy to relieve muscle spasms caused by painful conditions such as an injury. Cyclobenzaprine may also be used for purposes not listed in this medication guide. What should I discuss with my healthcare provider before taking cyclobenzaprine? You should not use cyclobenzaprine if you are allergic to it, or if you have: a thyroid disorder; heart block, heart rhythm disorder, congestive heart failure; or if you have recently had a heart attack. Cyclobenzaprine is not approved for use by anyone younger than 15 years old. Do not use cyclobenzaprine if you have taken an MAO inhibitor in the past 14 days. A dangerous drug interaction could occur. MAO inhibitors include isocarboxazid, linezolid, phenelzine, rasagiline, selegiline, and tranylcypromine. Some medicines can interact with cyclobenzaprine and cause a serious condition called serotonin syndrome. Be sure your doctor knows if you also take stimulant medicine, opioid medicine, herbal products, or medicine for depression, mental illness, Parkinson's disease, migraine headaches, serious infections, or prevention of nausea and vomiting. Ask your doctor before making any changes in how or when you take your medications. Tell your doctor if you have ever had: liver disease; glaucoma; enlarged prostate; or problems with urination. It is not known whether this medicine will harm an unborn baby. Tell your doctor if you are or plan to become . It may not be safe to breast-feed while using this medicine. Ask your doctor about any risk. Older adults may be more sensitive to the effects of this medicine. How should I take cyclobenzaprine? Follow all directions on your prescription label and read all medication guides or instruction sheets. Your doctor may occasionally change your dose. Use the medicine exactly as directed. Cyclobenzaprine is usually taken once daily for only 2 or 3 weeks. Follow your doctor's dosing instructions very carefully. Swallow the capsule whole and do not crush, chew, break, or open it. Take the medicine at the same time each day. Call your doctor if your symptoms do not improve after 3 weeks, or if they get worse. Store at room temperature away from moisture, heat, and light. What happens if I miss a dose? Take the medicine as soon as you can, but skip the missed dose if it is almost time for your next dose. Do not take two doses at one time. What happens if I overdose? Seek emergency medical attention or call the Poison Help line at . An overdose of cyclobenzaprine can be fatal. Overdose symptoms may include severe drowsiness, vomiting, fast heartbeats, tremors, agitation, or hallucinations. What should I avoid while taking cyclobenzaprine? Avoid driving or hazardous activity until you know how this medicine will affect you. Your reactions could be impaired. Avoid drinking alcohol. Dangerous side effects could occur. What are the possible side effects of cyclobenzaprine? Get emergency medical help if you have signs of an allergic reaction: hives; difficult breathing; swelling of your face, lips, tongue, or throat. Stop using cyclobenzaprine and call your doctor at once if you have: fast or irregular heartbeats; chest pain or pressure, pain spreading to your jaw or shoulder; or sudden numbness or weakness (especially on one side of the body), slurred speech, balance problems. Seek medical attention right away if you have symptoms of serotonin syndrome, such as: agitation, hallucinations, fever, sweating, shivering, fast heart rate, muscle stiffness, twitching, loss of coordination, nausea, vomiting, or diarrhea. Serious side effects may be more likely in older adults. Common side effects may include: drowsiness, tiredness; headache, dizziness; dry mouth; or upset stomach, nausea, constipation. This is not a complete list of side effects and others may occur. Call your doctor for medical advice about side effects. You may report side effects to FDA at 8-529-FTS-3972. What other drugs will affect cyclobenzaprine? Using cyclobenzaprine with other drugs that make you drowsy can worsen this effect. Ask your doctor before using opioid medication, a sleeping pill, a muscle relaxer, or medicine for anxiety or seizures. Tell your doctor about all your other medicines, especially: bupropion (Zyban, for smoking cessation); meperidine; tramadol; verapamil; cold or allergy medicine that contains an antihistamine (Benadryl and others); medicine to treat Parkinson's disease; medicine to treat excess stomach acid, stomach ulcer, motion sickness, or irritable bowel syndrome; medicine to treat overactive bladder; or bronchodilator asthma medication. This list is not complete. Other drugs may affect cyclobenzaprine, including prescription and liac-rtp-nazxciz medicines, vitamins, and herbal products. Not all possible drug interactions are listed here. Where can I get more information? Your pharmacist can provide more information about cyclobenzaprine. Remember, keep this and all other medicines out of the reach of children, never share your medicines with others, and use this medication only for the indication prescribed. Every effort has been made to ensure that the information provided by [employer]. ('[employer]') is accurate, up-to-date, and complete, but no guarantee is made to that effect. Drug information contained herein may be time sensitive. [employer] information has been compiled for use by healthcare practitioners and consumers in the [place] and therefore [employer] does not warrant that uses outside of the [place] are appropriate, unless specifically indicated otherwise. [employer] drug information does not endorse drugs, diagnose patients or recommend therapy. [employer] drug information is an informational resource designed to assist licensed healthcare practitioners in caring for their patients and/or to serve consumers viewing this service as a supplement to, and not a substitute for, the expertise, skill, knowledge and judgment of healthcare practitioners. The absence of a warning for a given drug or drug combination in no way should be construed to indicate that the drug or drug combination is safe, effective or appropriate for any given patient. [employer] does not assume any responsibility for any aspect of healthcare administered with the aid of information [employer] provides. The information contained herein is not intended to cover all possible uses, directions, precautions, warnings, drug interactions, allergic reactions, or adverse effects. If you have questions about the drugs you are taking, check with your doctor, nurse or pharmacist. Copyright 7658-9953 [employer]. Version: 7.01. Revision Date: 12/03/2022. Education Materials How to Quit Smoking Smoking is a hard habit to break. About half of all people who have ever smoked have been able to quit. Most people who still smoke want to quit. Here are some of the best ways to stop smoking. Keep in mind the health benefits of quitting The health benefits of quitting start right away. They keep improving the longer you go without smoking. Knowing this can help inspire you to stay on track. These benefits occur at any age. If you are 17 or 70, quitting is a good choice. Some of the health benefits after your last cigarette include: 20 minutes: Your blood pressure and pulse return to normal. 8 hours: Your oxygen levels return to normal. 2 days: Your ability to smell and taste start to improve as damaged nerves regrow. 2 to 3 weeks: Your circulation and lung function improve. 1 to 9 months: Your coughing, congestion, and shortness of breath decrease. Your tiredness decreases. 1 year: Your risk of heart attack decreases by half. 5 years: Your risk of lung cancer decreases by half. Your risk of stroke becomes the same as a nonsmoker s. Go cold turkey Most former smokers quit cold turkey. This means stopping all at once. Trying to cut back slowly often doesn't work as well. This may be because it continues the habit of smoking. Also, you may inhale more smoke while smoking fewer cigarettes. This leads to the same amount of nicotine in your body. Get support Support programs can be a big help, especially for heavy smokers. These groups offer lectures, ways to change behavior, and peer support. Here are some ways to find a support program: Free national quitline 494-ASVF-GYO (630-495-5078) [facility] quit-smoking programs [employer] [phone] [employer] [phone] Support at home is important too. Family and friends can offer praise and reassurance. If the smoker in your life finds it hard to quit, encourage them to keep trying. Try wldy-gqt-bwvqhiv medicine Nicotine replacement therapy may make it easier to quit. Some aids are available without a prescription. These include a nicotine patch, gum, and lozenges. But it is best to use these under the care of your healthcare provider. The skin patch gives a steady supply of nicotine. Nicotine gum and lozenges give short-time doses of low levels of nicotine. Both methods reduce the craving for cigarettes. If you have nausea, vomiting, dizziness, weakness, or a fast heartbeat, stop using these products. See your healthcare provider. Ask about prescription medicine After reviewing your smoking patterns and past attempts to quit, your doctor may offer a prescription medicine such as bupropion, varenicline, a nicotine inhaler, or nasal spray. Each has advantages and side effects. Your doctor can review these with you. Keep trying Most smokers make many attempts at quitting before they are successful. It s important not to give up. For more information For more on how to quit smoking, try these online resources: Go to Smokefree.gov. Read Clearing the Air from the [employer] at smokefree.gov/sites/default/files /pdf/fqbxkyrw-fom-qiv-accessible. pdf. 6572-0090 [employer]. [address] [place] [address]. All rights reserved. This information is not intended as a substitute for professional medical care. Always follow your healthcare professional's instructions. Rib Contusion or Minor Fracture A rib contusion is a bruise to one or more rib bones. It may cause pain, tenderness, swelling, and a purplish color to the skin. There may be a sharp pain with each breath. A rib contusion takes anywhere from a few days to a few weeks to heal. A minor rib fracture or break may cause the same symptoms as a rib contusion. The small crack may not be seen on a regular chest X-ray. Treatment for both problems is basically the same. Home care You may use tzsw-vog-nygmdae pain medicine to control pain, unless another pain medicine was prescribed. If you have chronic liver or kidney disease or ever had a stomach ulcer or GI (gastrointestinal) bleeding, talk with your healthcare provider before using these medicines. Rest. Don't lift anything heavy or do any activity that causes pain. Apply an ice pack over the injured area for 15 to 20 minutes every 1 to 2 hours. You should do this for the first 24 to 48 hours. To make an ice pack, put ice cubes in a plastic bag that seals at the top. Wrap the bag in a clean, thin towel or cloth. Never put ice or an ice pack directly on the skin. Continue with ice packs as needed for the relief of pain and swelling. The first 3 to 4 weeks of healing will be the most painful. If your pain is not under control with the treatment given, call your healthcare provider. Sometimes a stronger pain medicine may be needed. A nerve block can be done in case of severe pain. It will numb the nerve between the ribs. Follow-up care Follow up with your healthcare provider, or as advised. If X-rays were taken, you will be told of any new findings that may affect your care. Call 911 Call 911 if you have: Dizziness, weakness or fainting Shortness of breath with or without chest discomfort New or worsening pain When to seek medical advice Call your healthcare provider right away if any of these occur: Fever of 100.4 F (38 C) or higher, or as directed by your healthcare provider Chills Stomach pain, vomiting [id number] [employer] [place], [place] [id number]. All rights reserved. This information is not intended as a substitute for professional medical care. Always follow your healthcare professional's instructions. Chest Strain You have a chest strain. This happens when the muscles between the ribs stretch and tear. This may occur when you have a severe cough. It may also happen after strenuous lifting or twisting injuries of the upper back. A chest strain usually causes pain when you move or take a deep breath. The strain may take a few days to a few weeks to heal. Home care Follow these guidelines when caring for yourself at home: Rest. Don t do any heavy lifting or strenuous activity. Don t do any activity that causes pain. If you have a severe cough, use a cough syrup with dextromethorphan, unless another cough medicine was prescribed. If you have high blood pressure, check with your health care provider or pharmacist before using an lorw-jqk-kyaqjdj cough medicine. You may use acetaminophen or ibuprofen to control pain, unless another medicine was prescribed. If you have chronic liver or kidney disease, talk with your provider before using these medicines. Also talk with your provider if you ve had a stomach ulcer or GI bleeding. Follow-up care Follow up with your health care provider, or as advised. When to seek medical advice Call your health care provider right away if any of these occur: A change in the type of pain. This means if it feels different, gets worse, lasts longer, or begins to spread into your shoulder, arm, neck, jaw, or back. Pain doesn t go away in 1 week Shortness of breath, difficulty breathing, or fast breathing Pain gets worse when you breathe Cough with dark-colored sputum (phlegm) or blood Weakness, dizziness, or fainting Fever of 101 F (38.3 C) or higher, or as directed by your health care provider [id number] [employer]. [address] [place] [address], [place] [address]. All rights reserved. This information is not intended as a substitute for professional medical care. Always follow your healthcare professional's instructions. Additional Information VACCINATE! IT SAVES LIVES! Members of the community who have not yet received the COVID-19 vaccine and would like to receive it can visit one of [facility] vaccine clinics. There are many vaccine clinic locations within the [facility]. For locations and available times, please visit [email or web address] It is important to note that some COVID mobile vaccine clinics are held outdoors and may be canceled in rainy or stormy conditions. To learn more about pediatric vaccinations (ages 5-11), we invite you to visit the [facility] webpage. https://www.[email or web address].org/pa ges/7175-Sacsi-Ycasxrcgegy-Freque rewo-Forxd-Zjqhmxxur.html To learn more about the COVID-19 vaccine, we invite you to visit the CDC website for a list of frequently asked questions. https://www.cdc.gov/coronavirus/2 019-ncov/vaccines/faq.html [employer] Patient Portal Access Instructions: Stay connected with your healthcare team and access your personal medical information anytime with the [facility] Patient Portal. If you would like a full copy of your medical records please contact the [facility] Medical Records Department Tuesday through Tuesday between 8a.m. and 4:30p.m. Please follow the directions below to access the portal: 1.Access the email account you provided upon registration to the hospital.2.Look for an invitation email from [facility].3.Open the email and access the invitation link: Accept Invitation to [employer]4.Fill in the required musa to create your account. Sign into [email or web address].[employer] with your username and password that you created in the above steps to stay up to date. You can then view a summary of results, a summary of your visits, and the ability to download your summaries to your computer or send the information securely to a physician. Remember that your healthcare information is confidential, so carefully consider who you will allow to register on the [employer] Patient Portal for access to your information. You can also access the [employer] Patient Portal on the [employer]. Simply click on Health Records under Health Data and then click on the [employer] logo. HOW TO SAFELY DISPOSE OF PRESCRIPTION MEDICATIONS Please use one of the following methods to safely dispose of your unused medications. 1.Use a drug disposal kit: the drug disposal pouch allows you to safely discard your old and unused drugs. Ask your nurse to give you one when you are discharged.2.Visit a local take-back location: Many local pharmacies and police departments have programs that collect old and unwanted prescription drugs. Call your local pharmacy or go to http://Fanplayr.Yelp/0U6Pb1h to find one close to you.3.Make use of household items: Use cat litter or old coffee grounds to dispose medications if other options are not available. Mix your drugs with these household products, seal them in an airtight container and throw it into the garbage. Call [facility]: [phone] to be sure your drugs can be disposed of in this way. Some medicines may require a different approach.4.Never flush your medications down the toilet. IF YOU HAVE BEEN PRESCRIBED AN OPIOIDS FOR PAIN If you have been prescribed an opioid (such as hydrocodone, oxycodone or morphine), it is critical to understand the possible side effects and risks of opioid pain medications. Even when taken as directed, opioids can have several side effects including: Tolerance, meaning you might need to take more of a medication for the same pain relief. Nausea, vomiting and/or constipation. Sleepiness, dizziness, dry mouth, confusion, depression or itching. Physical dependence, meaning you have withdrawal symptoms when a medication is stopped ? this can develop within a few days. KNOW YOUR RESPONSIBILITIES It is important to know exactly how much and how often to take the opioid pain medications you are prescribed. Never take opioids in higher amounts or more often than prescribed. Do not combine opioids with alcohol or other drugs that cause drowsiness, such as benzodiazepines, also known as benzos, including diazepam and alprazolam, muscle relaxants or sleep aids. Never sell or share prescription opioids. This is illegal. Store opioids in a secure place and out of reach of others (including children, family, friends and visitors). The last page(s) of this document has been signed and retained as a CHART COPY Signatures Patient Education Materials Smoking Cessation Rib Contusion or Minor Fracture CHEST WALL STRAIN(CUSTOM) Medication Leaflets cyclobenzaprine My discharge plan and instructions have been reviewed and explained to me and I,BRINANICOLLE understand my current condition and have read and understand these discharge instructions. I have received a written copy of the plan/instructions. If I have questions, I am aware that I should contact my doctor. 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 Lung findings are reported separately. No additional contributory findings. IMPRESSION: No visible displaced rib fractures. Interpreted by: Imelda Vasquez MD Preliminary Report By: Imelda Vasquez MD Electronically signed By Imelda Vasquez MD Dictated Date: 02/12/2023 12:26:23 PM Prelim Date: 02/12/2023 12:30:23 PM Sign Date: 02/12/2023 12:30:23 PM Ordering Provider: SEKOU FLETCHER [facility] 02-12-2023 Note ORIGINAL EXAMINATION: TWO XRAY VIEWS OF THE CHEST 02/12/2023 12:20 pm COMPARISON: None. HISTORY: ORDERING SYSTEM PROVIDED HISTORY: Reason for Exam: pain FINDINGS: The heart and pulmonary vessels are unremarkable. No infiltrate or pleural fluid seen. No acute osseous abnormality identified. The inferior and lateral left ribs are not included on the exam. IMPRESSION: No acute finding. Interpreted by: Titus Salinas MD Preliminary Report By: Titus Salinas MD Electronically signed By Titus Salinas MD Dictated Date: 02/12/2023 12:26:06 PM Prelim Date: 02/12/2023 12:26:47 PM Sign Date: 02/12/2023 12:26:47 PM Ordering Provider: [facility] 09-13-2022 Hospital Discharg e instructions Patient Education 09/13/2022 12:23:56 Moderate Conscious Sedation, Adult, Care After Moderate Conscious Sedation, Adult, Care After These instructions provide you with information about caring for yourself after your procedure. Your health care provider may also give you more specific instructions. Your treatment has been planned according to current medical practices, but problems sometimes occur. Call your health care provider if you have any problems or questions after your procedure. What can I expect after the procedure? After your procedure, it is common: To feel sleepy for several hours. To feel clumsy and have poor balance for several hours. To have poor judgment for several hours. To vomit if you eat too soon. Follow these instructions at home: For at least 24 hours after the procedure: Do not: ?Participate in activities where you could fall or become injured. ?Drive. ?Use heavy machinery. ?Drink alcohol. ?Take sleeping pills or medicines that cause drowsiness. ?Make important decisions or sign legal documents. ?Take care of children on your own. Rest. Eating and drinking Follow the diet recommended by your health care provider. If you vomit: ?Drink water, juice, or soup when you can drink without vomiting. ?Make sure you have little or no nausea before eating solid foods. General instructions Have a responsible adult stay with you until you are awake and alert. Take zqvu-jsm-okksmpc and prescription medicines only as told by your health care provider. If you smoke, do not smoke without supervision. Keep all follow-up visits as told by your health care provider. This is important. Contact a health care provider if: You keep feeling nauseous or you keep vomiting. You feel light-headed. You develop a rash. You have a fever. Get help right away if: You have trouble breathing. This information is not intended to replace advice given to you by your health care provider. Make sure you discuss any questions you have with your health care provider. Document Released: 02/06/2014 Document Revised: 03/31/2018 Document Reviewed: 08/07/2016 [employer] Patient Education 2020 [employer]. 09/13/2022 12:23:31 Colonoscopy, Adult, Care After, Amrq-fc-Gkjf Colonoscopy, Adult, Care After This sheet gives you information about how to care for yourself after your procedure. Your doctor may also give you more specific instructions. If you have problems or questions, call your doctor. What can I expect after the procedure? After the procedure, it is common to have: A small amount of blood in your poop for 24 hours. Some gas. Mild cramping or bloating in your belly. Follow these instructions at home: General instructions For the first 24 hours after the procedure: ?Do not drive or use machinery. ?Do not sign important documents. ?Do not drink alcohol. ?Do your daily activities more slowly than normal. ?Eat foods that are soft and easy to digest. Take mgie-zxj-vlydkto or prescription medicines only as told by your doctor. To help cramping and bloating: Try walking around. Put heat on your belly (abdomen) as told by your doctor. Use a heat source that your doctor recommends, such as a moist heat pack or a heating pad. ?Put a towel between your skin and the heat source. ?Leave the heat on for 20 30 minutes. ?Remove the heat if your skin turns bright red. This is especially important if you cannot feel pain, heat, or cold. You can get burned. Eating and drinking Drink enough fluid to keep your pee (urine) clear or pale yellow. Return to your normal diet as told by your doctor. Avoid heavy or fried foods that are hard to digest. Avoid drinking alcohol for as long as told by your doctor. Contact a doctor if: You have blood in your poop (stool) 2 3 days after the procedure. Get help right away if: You have more than a small amount of blood in your poop. You see large clumps of tissue (blood clots) in your poop. Your belly is swollen. You feel sick to your stomach (nauseous). You throw up (vomit). You have a fever. You have belly pain that gets worse, and medicine does not help your pain. Summary After the procedure, it is common to have a small amount of blood in your poop. You may also have mild cramping and bloating in your belly. For the first 24 hours after the procedure, do not drive or use machinery, do not sign important documents, and do not drink alcohol. Get help right away if you have a lot of blood in your poop, feel sick to your stomach, have a fever, or have more belly pain. This information is not intended to replace advice given to you by your health care provider. Make sure you discuss any questions you have with your health care provider. Document Released: 05/21/2011 Document Revised: 02/16/2018 Document Reviewed: 01/10/2017 Open Me Patient Education [employer]. Follow Up Care 09/02/2022 09:19:18 With:BRINA KAMINSKI MD, Surgery Address: [address] [address] [phone] When: Unknown Comments:Office will be in touch with a referral to a Knitter Hand for a repeat colonoscopy. [facility] 09-13-2022 Summary of episod e note Discharge Instructions Thank you for allowing [facility] to assist you with your healthcare needs. The following is important discharge information regarding your hospital visit. Your Care Team LANDY LOVE What to do next Follow Up Appointments Follow Up with BRINA KAMINSKI MD, Surgery When Why: Office will be in touch with a referral to a Knitter Hand for a repeat colonoscopy. Where: [address] [address] [phone] The Following Activity and Diet Have Been Ordered for You No qualifying data available. No qualifying data available. The Following Equipment Has Been Ordered for You No qualifying data available. The Following Treatments Have Been Ordered for You Discharge Labs No qualifying data available. Discharge Radiology No qualifying data available. Other Therapies No qualifying data available. Post Acute Orders No qualifying data available. Someone Will Contact You Regarding These Home Health Referrals No home referrals have been ordered for you. No one will call you. Allergies penicillin (Hives) Medications Please ask your primary doctor or pharmacist before taking any other medication not listed, including over the counter drugs, herbal medications, vitamins and or supplements as they may interact with your home medications. What How Much When Why Instructions Last Dose Unchanged albuterol Unchanged meloxicam (Mobic 15 mg oral tablet) 1 tab(s) by mouth Once a day as needed for Pain Duration: 30 Days Unchanged nicotine (Nicoderm CQ patch 14-7mg TAPER (Disch Rx)) 1 patch(es) Transdermal Every day Tobacco use Unchanged polyethylene glycol 3350 with electrolytes (PEG-3350 with Electrolytes (Eqv-GoLYTELY) oral powder for reconstitution) See instructions Take as directed 1 day before colonoscopy. Follow instructions as provided by your GI provider at [facility]. Please take this list to your next doctor s visit. Bring all medications you take, including over the counter medications, herbals and other supplements with you to your doctor s visit. Patients and families are reminded to discard old lists and to update any records with all medication providers or retail pharmacies. Education Materials Moderate Conscious Sedation, Adult, Care After These instructions provide you with information about caring for yourself after your procedure. Your health care provider may also give you more specific instructions. Your treatment has been planned according to current medical practices, but problems sometimes occur. Call your health care provider if you have any problems or questions after your procedure. What can I expect after the procedure? After your procedure, it is common: To feel sleepy for several hours. To feel clumsy and have poor balance for several hours. To have poor judgment for several hours. To vomit if you eat too soon. Follow these instructions at home: For at least 24 hours after the procedure: Do not: ? Participate in activities where you could fall or become injured. ? Drive. ? Use heavy machinery. ? Drink alcohol. ? Take sleeping pills or medicines that cause drowsiness. ? Make important decisions or sign legal documents. ? Take care of children on your own. Rest. Eating and drinking Follow the diet recommended by your health care provider. If you vomit: ? Drink water, juice, or soup when you can drink without vomiting. ? Make sure you have little or no nausea before eating solid foods. General instructions Have a responsible adult stay with you until you are awake and alert. Take nahf-kfp-zabfjek and prescription medicines only as told by your health care provider. If you smoke, do not smoke without supervision. Keep all follow-up visits as told by your health care provider. This is important. Contact a health care provider if: You keep feeling nauseous or you keep vomiting. You feel light-headed. You develop a rash. You have a fever. Get help right away if: You have trouble breathing. This information is not intended to replace advice given to you by your health care provider. Make sure you discuss any questions you have with your health care provider. Document Released: 02/06/2014 Document Revised: 03/31/2018 Document Reviewed: 08/07/2016 Open Me Patient Education 2020 [employer]. Colonoscopy, Adult, Care After This sheet gives you information about how to care for yourself after your procedure. Your doctor may also give you more specific instructions. If you have problems or questions, call your doctor. What can I expect after the procedure? After the procedure, it is common to have: A small amount of blood in your poop for 24 hours. Some gas. Mild cramping or bloating in your belly. Follow these instructions at home: General instructions For the first 24 hours after the procedure: ? Do not drive or use machinery. ? Do not sign important documents. ? Do not drink alcohol. ? Do your daily activities more slowly than normal. ? Eat foods that are soft and easy to digest. Take ltwn-sbl-duxelku or prescription medicines only as told by your doctor. To help cramping and bloating: Try walking around. Put heat on your belly (abdomen) as told by your doctor. Use a heat source that your doctor recommends, such as a moist heat pack or a heating pad. ? Put a towel between your skin and the heat source. ? Leave the heat on for 20 30 minutes. ? Remove the heat if your skin turns bright red. This is especially important if you cannot feel pain, heat, or cold. You can get burned. Eating and drinking Drink enough fluid to keep your pee (urine) clear or pale yellow. Return to your normal diet as told by your doctor. Avoid heavy or fried foods that are hard to digest. Avoid drinking alcohol for as long as told by your doctor. Contact a doctor if: You have blood in your poop (stool) 2 3 days after the procedure. Get help right away if: You have more than a small amount of blood in your poop. You see large clumps of tissue (blood clots) in your poop. Your belly is swollen. You feel sick to your stomach (nauseous). You throw up (vomit). You have a fever. You have belly pain that gets worse, and medicine does not help your pain. Summary After the procedure, it is common to have a small amount of blood in your poop. You may also have mild cramping and bloating in your belly. For the first 24 hours after the procedure, do not drive or use machinery, do not sign important documents, and do not drink alcohol. Get help right away if you have a lot of blood in your poop, feel sick to your stomach, have a fever, or have more belly pain. This information is not intended to replace advice given to you by your health care provider. Make sure you discuss any questions you have with your health care provider. Document Released: 05/21/2011 Document Revised: 02/16/2018 Document Reviewed: 01/10/2017 Open Me Patient Education 2020 [employer]. Additional Information VACCINATE! IT SAVES LIVES! Members of the community who have not yet received the COVID-19 vaccine and would like to receive it can visit one of [facility] vaccine clinics. There are many vaccine clinic locations within the [facility]. For locations and available times, please visit https://gettheshot.coronavirus.[place].gov/. It is important to note that some COVID mobile vaccine clinics are held outdoors and may be canceled in rainy or stormy conditions. To learn more about pediatric vaccinations (ages 5-11), we invite you to visit the [facility] webpage. [email or web address] [email or web address]-Arnapeuqeem-[email or web address] brli-[email or web address].[email or web address] To learn more about the COVID-19 vaccine, we invite you to visit the CDC website for a list of frequently asked questions.https://www.cdc.gov/cor onavirus/2019-ncov/vaccines/faq.h tml [facility] Patient Portal Access Instructions: Stay connected with your healthcare team and access your personal medical information anytime with the [facility] Patient Portal. Please follow the directions below to create your [facility] account: 1.Access the email account you provided upon registration to the hospital/physician office.2.Look for an invitation email from [facility].3.Open the email and access the invitation link: Accept Invitation to [facility].4.Fill in the required musa to create your account. To access your account, visit [email or web address]. Click the blue button labeled Access Patient Portal and then log in with the username and password that you created in the steps above. You will be able to view your test results, lab results, a summary of your visits, upcoming appointments and more. There is also a convenient messaging option where you can send secure messages to your provider. In addition, you will have the ability to download any documents or summaries to your computer and/or send the information securely to a physician. Remember that your healthcare information is confidential, so carefully consider who you will allow to register on the [facility] Patient Portal for access to your information. You can also access the [facility] Patient Portal on the [facility] mitzi. Simply click on Patient Portal and then log into your account. If you would like to receive a full copy of your medical records, please contact the [facility] Medical Records Department by calling [phone], Tuesday through Tuesday between 8 a.m. and 4:30 p.m. HOW TO SAFELY DISPOSE OF PRESCRIPTION MEDICATIONS Please use one of the following methods to safely dispose of your unused medications. 1.Use a drug disposal kit: the drug disposal pouch allows you to safely discard your old and unused drugs. Ask your nurse to give you one when you are discharged.2.Visit a local take-back location: Many local pharmacies and police departments have programs that collect old and unwanted prescription drugs. Call your local pharmacy or go to http://bit.ly/2L0Hl3n to find one close to you.3.Make use of household items: Use cat litter or old coffee grounds to dispose medications if other options are not available. Mix your drugs with these household products, seal them in an airtight container and throw it into the garbage. Call [facility]: [phone] to be sure your drugs can be disposed of in this way. Some medicines may require a different approach.4.Never flush your medications down the toilet. IF YOU HAVE BEEN PRESCRIBED AN OPIOID FOR PAIN If you have been prescribed an opioid (such as hydrocodone, oxycodone or morphine), it is critical to understand the possible side effects and risks of opioid pain medications. Even when taken as directed, opioids can have several side effects including: Tolerance, meaning you might need to take more of a medication for the same pain relief. Nausea, vomiting and/or constipation. Sleepiness, dizziness, dry mouth, confusion, depression or itching. Physical dependence, meaning you have withdrawal symptoms when a medication is stopped, can develop within a few days. KNOW YOUR RESPONSIBILITIES It is important to know exactly how much and how often to take the opioid pain medications you are prescribed. Never take opioids in higher amounts or more often than prescribed. Do not combine opioids with alcohol or other drugs that cause drowsiness, such as benzodiazepines, also known as benzos, including diazepam and alprazolam, muscle relaxants or sleep aids. Never sell or share prescription opioids. This is illegal. Store opioids in a secure place and out of reach of others (including children, family, friends and visitors). The last page of this document has been signed and retained as a CHART COPY. Signatures Patient Education Materials Moderate Conscious Sedation, Adult, Care After Colonoscopy, Adult, Care After, Vrtu-nm-Dean Medication Leaflets My discharge plan and instructions have been reviewed and explained to me and I,NICOLLE GONSALVES understand my current condition and have read and understand these discharge instructions. I have received a written copy of the plan/instructions. If I have questions, I am aware that I should contact my doctor. 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: Date/Time: Relationship to Patient: ____ Witness Name/Signature: Date/Time: [facility] 09-13-2022 Anesthesiology Consult note Patient: NICOLLE GONSALVES Age: 41 years Sex: Female : 1980 Associated Diagnoses: None Author: PATRICIA HERRERA Assessment Postanesthesia assessment Vitals: Vital signs from flowsheet : Vital Signs 09/13/2022 12:05 EDT Heart Rate Monitored 67 bpm bpm Respiratory Rate - Anes 25 br/min br/min Systolic Blood Pressure Non-Invasive 114 mmHg mmHg Diastolic Blood Pressure Non-Invasive 86 mmHg mmHg 09/13/2022 12:00 EDT Heart Rate Monitored 68 bpm bpm Respiratory Rate - Anes 21 br/min br/min Systolic Blood Pressure Non-Invasive 101 mmHg mmHg Diastolic Blood Pressure Non-Invasive 74 mmHg mmHg 09/13/2022 11:55 EDT Heart Rate Monitored 56 bpm bpm Respiratory Rate - Anes 17 br/min br/min Systolic Blood Pressure Non-Invasive 91 mmHg mmHg Diastolic Blood Pressure Non-Invasive 69 mmHg mmHg 09/13/2022 11:50 EDT Heart Rate Monitored 44 bpm bpm Respiratory Rate - Anes 16 br/min br/min Systolic Blood Pressure Non-Invasive 100 mmHg mmHg Diastolic Blood Pressure Non-Invasive 69 mmHg mmHg 09/13/2022 11:11 EDT Temperature Temporal Artery 36.1 DegC Apical Heart Rate 45 bpm Respiratory Rate 15 br/min Systolic Blood Pressure Non-Invasive 101 mmHg Diastolic Blood Pressure Non-Invasive 64 mmHg Blood Pressure Location Left arm . Mental status: alert & oriented x 4. Respiratory function: lungs are clear to auscultation. Respiratory support: none. CV function: Normal rate. Cardiovascular support: none. Pain. Nausea status: see nursing documentation of medications. Postoperative hydration status: within normal limits. Digitally Signed by PATRICIA HERRERA on 09/13/2022 12:18 PM [facility] 09-13-2022 Anesthesiology Consult note Patient: NICOLLE GONSALVES Age: 41 years Sex: Female : 1980 Associated Diagnoses: None Author: PATRICIA HERRERA Preoperative Information Time of last food or liquid consumption: 09/11/2022 00:00:00 Anesthesia history Patient's history: negative. Family's history: negative. Review of Systems Ear/Nose/Mouth/Throat: Negative except as documented in history of present illness. Respiratory: Negative except as documented in history of present illness. Cardiovascular: Negative except as documented in history of present illness. Gastrointestinal: Negative except as documented in history of present illness. Genitourinary: Negative except as documented in history of present illness. Endocrine: Negative except as documented in history of present illness. Musculoskeletal: Negative except as documented in history of present illness. Integumentary: Negative except as documented in history of present illness. Neurologic: Negative except as documented in history of present illness. Health Status Allergies: Allergic Reactions (Selected) Severity Not Documented Penicillin- Hives., Allergies (1) ActiveReaction penicillinHives Current medications: (Selected) Prescriptions Prescribed Mobic 15 mg oral tablet: 15 mg, 1 tab(s), Oral, qDay, for 30 day(s), PRN: Pain, 30 tab(s), 1 Refill(s) Nicoderm CQ patch 14-7mg TAPER (Disch Rx): 1 patch(es), Transdermal, Daily, 56 patch(es), 1 Refill(s) PEG-3350 with Electrolytes (Eqv-GoLYTELY) oral powder for reconstitution: See Instructions, Take as directed 1 day before colonoscopy. Follow instructions as provided by your GI provider at [facility]., 1 EA, 0 Refill(s) Documented Medications Documented albuterol: 0 Refill(s), No qualifying data available Problem list: Medical Hand arthritis / SNOMED CT 9190340685 / Confirmed Asthma / SNOMED CT 714923199 / Confirmed Carpal tunnel syndrome on left / SNOMED CT 77736290 / Confirmed Family history of colon cancer in mother / SNOMED CT 208842053 / Confirmed Family history of colorectal cancer / SNOMED CT 3361404343 / Confirmed Family history of colonic polyps / SNOMED CT 9122979322 / Confirmed Hearing loss of left ear / SNOMED CT 3577827434 / Confirmed Low back pain / SNOMED CT 593411139 / Confirmed Screening for cardiovascular condition / SNOMED CT 712121133 / Confirmed Encounter for well woman exam / SNOMED CT 332629225 / Confirmed Need for hepatitis C screening test [facility] / Confirmed, Active Problems (12) Asthma Carpal tunnel syndrome on left Encounter for well woman exam Family history of colon cancer in mother Family history of colonic polyps Family history of colorectal cancer Hand arthritis Hearing loss of left ear Low back pain Need for hepatitis C screening test Screening for cardiovascular condition Tobacco use Histories Past Medical History: No active or resolved past medical history items have been selected or recorded. Family History: Cancer Mother Asthma Mother Alcohol abuse Mother Father Procedure history: Pap smear and HPV cotesting ([id number]) on 06/11/2022 at 41 Years. Wrist repair ([id number]). Comments: 06/18/2022 12:56 Antonietta Casey CMA 2016 left Knee ([id number]). Comments: 06/18/2022 13:10 Antonietta Casey PULLMAN CLERK right knee 09/2012 Social History Social & Psychosocial Habits Alcohol 06/18/2022 Use: Current Type: Beer Frequency: 1-2 times per week Substance Abuse 06/18/2022 Use: Never Tobacco 06/18/2022 Tobacco Use: 10 or more cigarettes (1/ Type: Cigarettes Nutrition/Health 06/18/2022 Caffeine intake amount: coffee and pepsi 5 daily . Physical Examination No qualifying data available General: Alert and oriented. Airway: Normal neck range of motion. Mallampati classification: II (soft palate, fauces, uvula visible). Head: Normocephalic. Dentition Evaluation: Intact, Own teeth. Neck: Full range of motion. Respiratory: Lungs are clear to auscultation. Cardiovascular: Normal rate. Heart Sounds: Normal. Gastrointestinal: Soft. Musculoskeletal Normal range of motion. Integumentary: Intact, Warm, Dry. Neurologic: Alert, Oriented. Review / Management Results review: No qualifying data available . Assessment and Plan [place] [employer] Anesthesiologists (ASA) physical status classification: Class II. Anesthetic Preoperative Plan Premedication: intravenous. Anesthetic technique: MAC. Induction: intravenously. Maintenance airway: Mask. Risks discussed: nausea, vomiting, headache, sore throat, dental injury, hypotension, allergic reaction, serious complications. Informed consent: signed by patient. Notes: asthma. Digitally Signed by PATRICIA HERRERA on 09/13/2022 11:31 AM [facility] 07-09-2022 Evaluation + Plan note Diagnostic Tests PendingHepatitis C Antibody IgG 07/09/22 [facility] 06-21-2022 Miscellaneous Notes June 22, 2022 PID: [id number] Nicolle Gonsalves [address] [place] [address] Dear Ms. Archuletan, We are pleased to inform you that the results of your recent breast imaging exam on 06/18/2022 are normal. Your mammogram demonstrates that you have dense breast tissue, which could hide abnormalities. Dense breast tissue, in and of itself, is a relatively common condition. Therefore, this information is not provided to cause undue concern; rather, it is to raise your awareness and promote discussion with your health care provider regarding the presence of dense breast tissue in addition to other risk factors. Early detection of cancer is very important. We also understand recommendations regarding breast cancer screening are controversial. Please discuss with your primary care provider which strategy is best for you and whether a mammogram is right for you. Your imaging studies and report will be kept on file at [facility] as part of your permanent medical record and are available for your continuing care. Thank you for allowing us to help in meeting your health care needs. Sincerely, Dr. Werner Interpreting Radiologist [facility] (Normal over 40) documented in this encounter [facility] 06-18-2022 Note HNO ID: [id number] Author: Mary Kenny RT(R) Service: ? Author Type: Technologist Type: Progress Notes Filed: 06/18/2022 3:16 PM Note Text: Radiology Service Progress Note PATIENT NAME: Nicolle Gonsalves DATE OF SERVICE: June 18, 2022 TIME: 3:16 PM PATIENT IDENTITY VERIFICATION COMPLETED USING TWO (2) IDENTIFIERS: Name and Date of confirmed by patient verbally. FALL SCREENING: Has the patient had 2 falls in the last year or 1 fall with injury or currently using an Ambulatory Assistive Device (Walker, Cane, Wheelchair, Crutches, etc.)? No PATIENT GENDER DATA: Female. status: : No status: NO. PATIENT RELEVANT IMPLANT DATA REVIEWED: Not Applicable RADIOLOGY DEPARTMENT: Mammography PERIPHERAL IV DATA: Not applicable SIGNED BY: RT Lester(R) June 18, 2022 3:16 PM [facility] 06-18-2022 History of Presen t illness Narrative Radiology Service Progress Note PATIENT NAME: Nicolle Gonsalves DATE OF SERVICE: June 18, 2022 TIME: 3:16 PM PATIENT IDENTITY VERIFICATION COMPLETED USING TWO (2) IDENTIFIERS: Name and Date of confirmed by patient verbally. FALL SCREENING: Has the patient had 2 falls in the last year or 1 fall with injury or currently using an Ambulatory Assistive Device (Walker, Cane, Wheelchair, Crutches, etc.)? No PATIENT GENDER DATA: Female. status: : No status: NO. PATIENT RELEVANT IMPLANT DATA REVIEWED: Not Applicable RADIOLOGY DEPARTMENT: Mammography PERIPHERAL IV DATA: Not applicable SIGNED BY: RT Lester(R) June 18, 2022 3:16 PM documented in this encounter [facility] 06-11-2022 Note HNO ID: [id number] Author: Jacque Izquierdo APRN.GRADES 7 8 TUTOR Service: ? Author Type: Nurse Practitioner Type: Progress Notes Filed: 06/11/2022 9:56 AM Note Text: Nicolle is a 41 year old who presents for an annual gynecologic exam without complaints. Menses: cycles every 28-30 days, 4-5 days of flow, and regular. Had a few irregular cycles in 2020 and May 2022. Not interfering with daily life. 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 Comments: Sexual Activity: Yes; Female Contraception: None PAST MEDICAL HISTORY Diagnosis Date Asthma PAST SURGICAL HISTORY Procedure Laterality Date KNEE SURGERY HX 2014 PAST SURGICAL HISTORY OF Bilateral nail avulsions WRIST SURGERY HX Left 2016 FAMILY HISTORY Problem Relation Age of Onset other (diverticulitis) Mother other (hysterectomy) Mother Pneumothorax Mother other (renal cyst) Mother Asthma Mother No Known Problems Father Gall Stones Sister other (hysterectomy) Sister Mental illness Brother Bipolar disorder Brother Developmental problem Brother ADD/ADHD Brother Heart disease Maternal Grandmother other (anemia) Maternal Grandmother No Known Problems Paternal Grandmother No Known Problems Paternal Grandfather SOCIAL HISTORY Social History Tobacco Use Smoking status: Every Day Types: Cigarettes Passive exposure: Never Smokeless tobacco: Never Vaping Use Vaping Use: Never used Substance Use Topics Alcohol use: Yes Comment: occassionally Drug use: Yes Types: Marijuana REVIEW OF SYSTEMS Abdomen: No abdominal pain, nausea, vomiting, diarrhea, or constipation. No bloating, early satiety, indigestion, or increased flatulence. Bladder: No dysuria, gross hematuria, urinary frequency, urinary urgency, or incontinence. Breast: No breast lumps, nipple d/c, overlying skin changes, redness or skin retraction. Allergies and current medication updated:Yes EXAM: BP 120/64 Ht 5' 6.5 (1.69m) Wt 140 lb 3.2 oz (63.6kg) LMP 06/03/2022 BMI 22.29 kg/(m2). GENERAL: pleasant, female in no apparent distress HEENT: Normocephalic, atraumatic, mucus membranes moist, and no lesions NECK: Supple, full range of motion, no adenopathy, and thyroid normal DERMATOLOGY: Normal, without lesions, non-icteric, and non-hirsute BREAST: soft, non-tender, symmetric, no dominant mass, normal nipple-areolar complex, no lymphadenopathy, and no nipple discharge CHEST: Normal inspiratory effort ABDOMEN: soft, non-tender, and no masses PELVIC: external genitalia normal, normal Bartholin's glands, urethra, [place]'s glands, no vulvar lesions, no cervical lesions, good vaginal support, physiologic discharge present, normal appearing perineal body and perianal region BIMANUAL: uterus normal size, shape and consistency, no adnexal masses, non-tender, and no cervical motion tenderness RECTOVAGINAL: deferred. NEURO: alert and oriented x3,exam grossly non-focal EXTREMITIES: normal ASSESSMENT/PLAN: 1) Health maintenance: Pap done with HPV. Nutrition, exercise and routine health maintenance exams reviewed. 2) Contraception: none. Contraceptive options reviewed and information provided. 3) STD screening: Declined STD check. 4) Follow up one year or sooner as needed Traci Davis, student ADELIA TEACHING PROVIDER (Physician/PA/DENTAL ASSOCIATE) NOTE OF PERSONAL INVOLVEMENT IN CARE: I have personally seen and examined the patient and performed the medical decision-making components. I have reviewed the Advanced Practice Registered Nurse (DENTAL ASSOCIATE) Student's documentation and verified the findings in the note as written. Any additions or changes are noted in bold/italics. Signature: Jacque Causeycalf Date: 06/11/2022 Time: 9:06 AM [facility] 06-11-2022 History of Presen t illness Narrative Nicolle is a 41 year old who presents for an annual gynecologic exam without complaints. Menses: cycles every 28-30 days, 4-5 days of flow, and regular. Had a few irregular cycles in 2020 and May 2022. Not interfering with daily life. 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 Comments: Sexual Activity: Yes; Female Contraception: None PAST MEDICAL HISTORY Diagnosis Date Asthma PAST SURGICAL HISTORY Procedure Laterality Date KNEE SURGERY HX 2014 PAST SURGICAL HISTORY OF Bilateral nail avulsions WRIST SURGERY HX Left 2016 FAMILY HISTORY Problem Relation Age of Onset other (diverticulitis) Mother other (hysterectomy) Mother Pneumothorax Mother other (renal cyst) Mother Asthma Mother No Known Problems Father Gall Stones Sister other (hysterectomy) Sister Mental illness Brother Bipolar disorder Brother Developmental problem Brother ADD/ADHD Brother Heart disease Maternal Grandmother other (anemia) Maternal Grandmother No Known Problems Paternal Grandmother No Known Problems Paternal Grandfather SOCIAL HISTORY Social History Tobacco Use Smoking status: Every Day Types: Cigarettes Passive exposure: Never Smokeless tobacco: Never Vaping Use Vaping Use: Never used Substance Use Topics Alcohol use: Yes Comment: occassionally Drug use: Yes Types: Marijuana REVIEW OF SYSTEMS Abdomen: No abdominal pain, nausea, vomiting, diarrhea, or constipation. No bloating, early satiety, indigestion, or increased flatulence. Bladder: No dysuria, gross hematuria, urinary frequency, urinary urgency, or incontinence. Breast: No breast lumps, nipple d/c, overlying skin changes, redness or skin retraction. Allergies and current medication updated:Yes EXAM: BP 120/64 Ht 5' 6.5 (1.69m) Wt 140 lb 3.2 oz (63.6kg) LMP 06/03/2022 BMI 22.29 kg/(m^2). GENERAL: pleasant, female in no apparent distress HEENT: Normocephalic, atraumatic, mucus membranes moist, and no lesions NECK: Supple, full range of motion, no adenopathy, and thyroid normal DERMATOLOGY: Normal, without lesions, non-icteric, and non-hirsute BREAST: soft, non-tender, symmetric, no dominant mass, normal nipple-areolar complex, no lymphadenopathy, and no nipple discharge CHEST: Normal inspiratory effort ABDOMEN: soft, non-tender, and no masses PELVIC: external genitalia normal, normal Bartholin's glands, urethra, [place]'s glands, no vulvar lesions, no cervical lesions, good vaginal support, physiologic discharge present, normal appearing perineal body and perianal region BIMANUAL: uterus normal size, shape and consistency, no adnexal masses, non-tender, and no cervical motion tenderness RECTOVAGINAL: deferred. NEURO: alert and oriented x3,exam grossly non-focal EXTREMITIES: normal ASSESSMENT/PLAN: 1) Health maintenance: Pap done with HPV. Nutrition, exercise and routine health maintenance exams reviewed. 2) Contraception: none. Contraceptive options reviewed and information provided. 3) STD screening: Declined STD check. 4) Follow up one year or sooner as needed Traci Davis, student BONNIE TEACHING PROVIDER (Physician/PA/DENTAL ASSOCIATE) NOTE OF PERSONAL INVOLVEMENT IN CARE: I have personally seen and examined the patient and performed the medical decision-making components. I have reviewed the Advanced Practice Registered Nurse (DENTAL ASSOCIATE) Student's documentation and verified the findings in the note as written. Any additions or changes are noted in bold/italics. Signature: Jacque Izquierdo Date: 06/11/2022 Time: 9:06 AM documented in this encounter [facility] Diagnosis Encounter for screening mammogram for breast cancer documented in this encounter [facility] course Narrative No data available for this section [facility] Discharge instructions No data available for this section [facility] Progress note No data available for this section [facility] Reason for referral (narrative)* Diagnostic Procedure Only (Routine) - Authorized Specialty Diagnoses / Procedures Referred By Contac t Referred To Contact [facility] Diagnoses Encounter for screening mammogram for breast cancer Procedures ROSALINA SCREENING SCREENING MAMMOGRAPHY BI 2-VIEW BREAST INC CAD Jacque Izquierdo APRN.GRADES [address] [place] [address] [facility] [address] [place] [address] Referral ID Status Reason Start Date Expiration Date Visits Requested Visits Authorized [id number] Authorized Auto-Generat ed Referral 06/11/2022 07/11/2023 1 1 [facility] Diagnostic Procedure Only (Routine) - Closed Specialty Diagnoses / Procedures Referred By Contac t Referred To Contact [facility] Diagnoses Encounter for screening mammogram for breast cancer Procedures ROSALINA SCREENING SCREENING MAMMOGRAPHY BI 2-VIEW BREAST INC CAD Jacque Izquierdo APRN.CNP [address] [place] [address] [facility] [address] [place] [address] Referral ID Status Reason Start Date Expiration Date V isits Requested Visits Authorized [id number] Closed Auto-Generate d Referral 06/11/2022 07/11/2023 [facility] Diagnostic Procedure Only (Routine) - Closed Specialty Diagnoses / Procedures Referred By Contac t Referred To Contact [facility] Diagnoses Encounter for screening mammogram for breast cancer Procedures ROSALINA SCREENING SCREENING MAMMOGRAPHY BI 2-VIEW BREAST INC CAD Jacque Izquierdo APRN.CNP [address] [place] [address] [facility] [address] [place] [address] Referral ID Status Reason Start Date Expiration Date V isits Requested Visits Authorized [id number] Closed Auto-Generate d Referral 06/11/2022 07/11/2023 1 1 [facility] Summary Purpose Family History No Family History Records Found No data available for this section No Family History Records Found Advance Directives No Advanced Directives Records FoundNo Advanced Directives Records Found Additional Source Comments Source Comments (unrecognize d section and content) In the event this informatio n is protected by the Federal Confidentiality of Alcohol and Drug Abuse Patient Records regulations: The Federal rules restrict any use of the information to criminally investigate or prosecute any alcohol or drug abuse patient.[facility] the event this information is protected by the Federal Confidentiality of Alcohol and Drug Abuse Patient Records regulations: The Federal rules restrict any use of the information to criminally investigate or prosecute any alcohol or drug abuse patient.[facility] the event this information is protected by the Federal Confidentiality of Alcohol and Drug Abuse Patient Records regulations: The Federal rules restrict any use of the information to criminally investigate or prosecute any alcohol or drug abuse patient.[facility] Reason for Visit (unrecogniz ed section and content) INFORMATION SOURCE (unrecogn ized section and content) DATE CREATED AUTHOR AUTHOR'S NIKOLAI ATION 02/21/2023 [facility] ([place]) Care Team (unrecognized sect ion and content) Care Team Personnel Name: LANDY LOVE Position: P4 Advanced Jet Worker Member Role: Primary Care Physician Address: Address: [address] [place] [address] Patient Care team informatio n (unrecognized section and content) Care Team Personnel Name: LANDY LOVE Position: P4 Advanced Jet Worker Member Role: Primary Care Physician Address: Address: [address] [place] [address] Care Team Related Persons Name: ELADIO YATES Care Team Personnel Name: LANDY LOVE Position: P4 Advanced Jet Worker Member Role: Primary Care Physician Address: Address: [address] [place] [address] Name: SEKOU FLETCHER MD Position: ED Physician Member Role: Attending Physician Address: Address: [address] [place] [address] Care Team Related Persons Name: ELADIO YATES FOR RECORDS PERTAINING TO PATIENTS WHO ARE OR HAVE BEEN ENROLLED IN A CHEMICAL DEPENDENCY/SUBSTANCEABUSE PROGRAM, SOME INFORMATION MAY BE OMITTED. This clinical summary was aggregated from multiple sources. Caution should be exercised in using it in the provision of clinical care. This summary normalizes information from multiple sources, and as a consequence, information in this document may materially change the coding, format and clinical context of patient data. In addition, data may be omitted in some cases. CLINICAL DECISIONS SHOULD BE BASED ON THE PRIMARY CLINICAL RECORDS. [facility] [employer] [facility]. provides no warranty or guarantee of the accuracy or completeness of information in this document.
== END 2023-06-13 23:33 | disposition home or self-care (01) ==
PROVIDERS: Emergency Provider Emergency Medicine; PCP Nurse Practitioner Adult Health; Visit Provider Emergency Medicine
DX: J06.9 Acute upper respiratory infection, unspecified (principal); F17.210 Nicotine dependence, cigarettes, uncomplicated; J45.909 Unspecified asthma, uncomplicated
CPT/HCPCS: 71046; 87631; 87651; 99282

== ENCOUNTER 2023-08-12 16:18 | Emergency (ER) | payer OTHER, SELFPAY ==
[2023-08-12 16:19] VITALS: BP 107/82; PULSE 76; RESP 18; TEMP 35.6
[2023-08-12 16:20] VITALS: BP 107/82; PULSE 76; RESP 18; TEMP 35.6; BMI 22.8
--- NOTE | 2023-08-12 16:30 | EX.ED.UPPERE ---
HPI <BERONICA Moya - Last Filed: 08/12/23 17:12> History of Present Illness Chief Complaint: Upper Extremity Injury Narrative Narrative: 42-year-old female presents with left shoulder pain that started after waking up today. She states her roommate told her she fell down the stairs yesterday. She does not remember this. She states she woke up in her bedroom this morning and just noted her left shoulder hurt. She states she was not drinking alcohol or using drugs and she takes no medications. She denies headache or neck pain or any other injuries. She is right-hand dominant. PFSH <BERONICA Moya - Last Filed: 08/12/23 17:12> COUNT INCLUDES THE [facility] Medical History Anemia Arthritis Asthma Back pain Gastric reflux Hearing loss in left ear Migraine headache Smoker Wears glasses Home Medications meloxicam 15 mg tablet 15 mg PO PRN PAIN 10/06/22 [History Last Taken Unknown] albuterol sulfate 90 mcg/actuation aerosol inhaler (Ventolin HFA) 1 - 2 puff inhalation Q4H PRN PRN Wheezing #1 ea 03/17/23 [Rx Last Taken Unknown] azithromycin 250 mg tablet See Rx Instructions PO .COMPLEX #6 tabs 03/17/23 [Rx Last Taken Unknown] diclofenac sodium 75 mg tablet,delayed release 75 mg PO BID 03/17/23 [History Last Taken Unknown] prednisone 20 mg tablet 40 mg (2 x 20 mg) PO DAILY 5 days #10 TABLETS 03/17/23 [Rx Last Taken Unknown] hydrocodone-acetaminophen 5-325mg 5mg-325mg 1 tab PO Q4H PRN PRN Pain 2 days #10 TABLETS 06/13/23 [Rx Last Taken Unknown] hydrocodone-acetaminophen 5-325mg 5mg-325mg 1 tab PO Q4H PRN PRN Pain 2 days #10 TABLETS 08/12/23 [Rx Last Taken Unknown] Allergy/AdvReac Type Severity Reaction Status Date / Time Penicillins Allergy Hives Verified 08/12/23 16:19 Family History Mother Alcohol abuse Asthma Cancer Father Alcohol abuse Surgical History H/O knee surgery History of surgery on left wrist Social History Smoking Status: Current every day smoker tobacco type: cigarettes alcohol intake: current ROS <BERONICA Moya - Last Filed: 08/12/23 17:12> ROS ED ROS Narrative Eyes: Negative for visual change. CVS: Negative for chest pain. Respiratory: Negative for shortness of breath. Neuro: Negative for headache, motor/sensory dysfunction. Musc: Positive for left shoulder pain, trauma. EXAM <BERONICA Moya - Last Filed: 08/12/23 17:12> Physical Exam Narrative Exam Narrative: CONST: Patient sitting in no acute distress. EYES: Normal inspection. NECK: Normal inspection. No midline spinal tenderness, no step off or crepitus. RESP: No respiratory distress, CTAB. CVS: Regular rate and rhythm, no murmur, no gallop. Back: Normal inspection, no midline tenderness. SKIN: Color normal, no rash, warm, dry, intact. EXTREMITIES: Normal appearance of upper and lower extremities. Tender over left distal clavicle or glenohumeral joint, otherwise no tenderness of humerus elbow forearm wrist or hand. She can abduct her left shoulder to just above 90 degrees and then is limited by pain. 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 NEURO: Alert and answering questions appropriately. PSYCH: Normal affect. Const Vital Signs: 08/12/23 16:20 08/12/23 16:19 Temperature 96.1 F L 96.1 F L Temperature Source Temporal Temporal Pulse Rate 76 76 Respiratory Rate 18 18 Blood Pressure 107/82 H 107/82 H Blood Pressure Mean 90 90 MDM <BERONICA Moya - Last Filed: 08/12/23 17:12> MDM MDM Narrative Medical decision making narrative: Patient has a left shoulder injury. She is tender over the distal clavicle and proximal shoulder. There are no signs of dislocation and she can abduct past 90 degrees. Neurovascularly intact. X-ray shows no acute findings. I discussed symptomatic care for a shoulder contusion and she was given a work note for today. She was discharged in stable condition. Differential: Shoulder contusion versus fracture I have personally performed a face to face assessment of the patient and have reviewed the CAL Note. I performed a substantive portion of the visit including all aspects of the following. My louis findings include: History is [patient presents to the emergency department with pain to her left shoulder. Patient states that she fell down a flight of steps last evening. Patient remembers going out to let the dog out and then she came back in and then does not remember what happened. She got up and went to work and was having pain in her left shoulder was told to get evaluated. Her roommate told her that she had fallen down the steps although the roommate heard the fall but did not see it. Is unclear how many steps she may have fallen down. Patient believes she then just got right up and walked back up to her room and went to bed. Patient denies alcohol use. Denies illicit drug use. She is right-hand dominant.] Exam is [HEENT-PERRLA, EOMI. Cranial nerves II through XII grossly intact. TMs clear. Mucous membranes moist. No adenopathy. No external evidence of trauma to her head. Cardiovascular-regular rate and rhythm without murmur or ectopy Lungs-clear to auscultation, chest wall stable without crepitus or subcu emphysema Abdomen-normoactive bowel sounds, soft, nontender, no rebound or rigidity, no peritoneal signs. Extremities-intact ?4. Patient has tenderness palpation over the distal clavicle and glenohumeral joint. Slightly limited range of motion secondary to pain. She is able to abduct past 90 degrees. No signs of dislocation there is no sulcus sign. Neurovascular intact distally. Medical Decison Making [patient presents after a mechanical fall with injury to the left shoulder. No significant evidence of trauma noted. X-rays interpreted by myself as no evidence of fracture or dislocation. This point I suspect contusion. Recommended follow-up with primary care physician within the next 5 to 7 days. She will be offered a sling for comfort.] Other additions or changes: [None] <Dr. Neha Hines, DO - Last Filed: 08/12/23 16:58> [facility] Narrative Medical decision making narrative: I have personally performed a face to face assessment of the patient and have reviewed the CAL Note. I performed a substantive portion of the visit including all aspects of the following. My louis findings include: History is [patient presents to the emergency department with pain to her left shoulder. Patient states that she fell down a flight of steps last evening. Patient remembers going out to let the dog out and then she came back in and then does not remember what happened. She got up and went to work and was having pain in her left shoulder was told to get evaluated. Her roommate told her that she had fallen down the steps although the roommate heard the fall but did not see it. Is unclear how many steps she may have fallen down. Patient believes she then just got right up and walked back up to her room and went to bed. Patient denies alcohol use. Denies illicit drug use. She is right-hand dominant.] Exam is [HEENT-PERRLA, EOMI. Cranial nerves II through XII grossly intact. TMs clear. Mucous membranes moist. No adenopathy. No external evidence of trauma to her head. Cardiovascular-regular rate and rhythm without murmur or ectopy Lungs-clear to auscultation, chest wall stable without crepitus or subcu emphysema Abdomen-normoactive bowel sounds, soft, nontender, no rebound or rigidity, no peritoneal signs. Extremities-intact ?4. Patient has tenderness palpation over the distal clavicle and glenohumeral joint. Slightly limited range of motion secondary to pain. She is able to abduct past 90 degrees. No signs of dislocation there is no sulcus sign. Neurovascular intact distally. Medical Decison Making [patient presents after a mechanical fall with injury to the left shoulder. No significant evidence of trauma noted. X-rays interpreted by myself as no evidence of fracture or dislocation. This point I suspect contusion. Recommended follow-up with primary care physician within the next 5 to 7 days. She will be offered a sling for comfort.] Other additions or changes: [None] Radiography Diagnostic Testin view x-rays of the left shoulder obtained interpreted by myself as no evidence of fractures or dislocations. Discharge Plan Triage Chief Complaint: Upper Extremity Injury ED Midlevel Provider: Isabella Rojas ED Provider: Neha Hines Dx/Rx/DC Orders Clinical Impression: Contusion of left shoulder Instructions: Bruises (Contusions) Prescriptions: New hydrocodone-acetaminophen [hydrocodone-acetaminophen] 5-325 mg tablet 1 tab PO Q4H PRN PRN (Reason: Pain) 2 Days Qty: 10 0RF No Action meloxicam 15 mg tablet 15 mg PO PRN hydrocodone-acetaminophen [hydrocodone-acetaminophen] 5-325 mg tablet 1 tab PO Q4H PRN PRN (Reason: Pain) 2 Days Qty: 10 0RF diclofenac sodium 75 mg tablet,delayed release (DR/EC) 75 mg PO BID Patient Comments: take 1 tablet by mouth twice a day albuterol sulfate [Ventolin HFA] 90 mcg/actuation HFA aerosol inhaler 1 - 2 puff inhalation Q4H PRN PRN (Reason: Wheezing) Qty: 1 0RF azithromycin 250 mg tablet See Rx Instructions .ROUTE .COMPLEX Qty: 6 0RF Rx Instructions: For 250 mg dose pack: take 500 mg today (day 1), then 250 mg for 4 days (days 2-5) prednisone 20 mg tablet 40 mg PO DAILY 5 Days Qty: 10 0RF Stand Alone Forms: ED Work / School Excuse Primary Care Provider: LANDY LOVE Referrals: LANDY LOVE, GOLDIE [Primary Care Provider] - 3-5 Days Disposition Disposition: Home, Self Care
--- NOTE | 2023-08-12 16:35 | RAD_ITS ---
STUDY: X-RAY - LEFT SHOULDER REASON FOR EXAM: Female, 42 years old. pain TECHNIQUE: 4 view(s) of the shoulder. COMPARISON: None. FINDINGS: Normal glenohumeral articulation. Normal acromioclavicular joint. Normal acromion. Normal humeral head and visualized proximal humerus. The soft tissue structures are unremarkable. Normal visualized pulmonary apex. RAD/Shoulder min 2 Views IMPRESSION: Normal x-ray examination of the shoulder. Electronically Signed: Trino Villatoro MD at 16:51 EDT ,
[2023-08-12 17:13] VITALS: BP 103/71; PULSE 67; RESP 18; TEMP 36.6; O2SAT 98
== END 2023-08-12 17:14 | disposition home or self-care (01) ==
PROVIDERS: Emergency Provider Emergency Medicine; PCP Nurse Practitioner Adult Health; Visit Provider Emergency Medicine
DX: S40.012A Contusion of left shoulder, initial encounter (principal); W10.9XXA Fall (on) (from) unspecified stairs and steps, initial encounter; F17.210 Nicotine dependence, cigarettes, uncomplicated
CPT/HCPCS: 73030; 99283

== ENCOUNTER → 2024-03-23 | Outpatient (CLI) | payer OTHER, SELFPAY | END | disposition home or self-care (01) | LOC: EN 12:48 | PROVIDERS: PCP Nurse Practitioner Adult Health; Visit Provider Internal Medicine Gastroenterology | DX: Z01.818 Encounter for other preprocedural examination (principal) | CPT/HCPCS: J7120 ==

== ENCOUNTER 2024-07-14 12:29 | Emergency (ER) | payer BC, SELFPAY ==
[2024-07-14 12:30] VITALS: BP 109/76; PULSE 92; RESP 14; TEMP 35.8; O2SAT 98; BMI 24.3
--- NOTE | 2024-07-14 12:46 | ED.VIS.LOWEX ---
HPI History of Present Illness HPI Narrative: Patient presents with left ankle injury that occurred last night. Patient states she was running from the store to her car. Patient states she inverted her left ankle. Patient states she felt 3 pops in her ankle. Patient states her pain as burning and throbbing. Patient states her pain radiates to her calf. Patient states it is worse with weightbearing and better with rest. Patient denies any paresthesias or weakness. Patient denies any other injuries. Chief Complaint: Lower Extremity Injury Onset/Context/Timing Context: Sudden Onset Timing: Continuous Quality of Pain: Burning and Throbbing Location: Left ankle Worsened by: Weightbearing Relieved by: Rest Associated Symptoms Associated Symptoms: Negative for Parasthesia, Weakness or Loss of Funtion PFSH [facility] Medical History Wears glasses Anemia Back pain Migraine headache Gastric reflux Smoker Hearing loss in left ear Arthritis Asthma Home Medications ?Medication ?Instructions ?Recorded ?Last Taken ?Type meloxicam 15 mg tablet 15 mg PO DAILY 01/17/24 Unknown History Allergy/AdvReac Type Severity Reaction Status Date / Time Penicillins Allergy Hives Verified 07/14/24 12:33 Family History Mother Alcohol abuse Asthma Cancer Father Alcohol abuse Surgical History Hx of colonoscopy History of surgery on left wrist H/O knee surgery Social History household members: significant other housing: house Smoking Status: Current every day smoker tobacco type: cigarettes alcohol intake: current ROS ROS ED Constitutional Constitutional ED: Denies chills or fever(s) Eyes Eyes: Denies blurry vision or change in vision ENT ENT ED: Denies rhinorrhea or sore throat Cardiovascular Cardiovascular: Denies chest pain or palpitations Respiratory/Chest Respiratory/Chest: Denies cough or dyspnea Gastrointestinal Gastrointestinal: Denies nausea or vomiting Genitourinary Genitourinary ED: Denies dysuria or hematuria Musculoskeletal Musculoskeletal: Denies back pain or neck pain Integumentary Denies abscess or rash Neurologic Neurologic: Denies headache(s) or weakness Allergic/Immunologic Allergic/Immunologic ED: Denies mouth swelling or urticaria EXAM Physical Exam Const Vital Signs: 07/14/24 12:30 Temperature 96.4 F L Temperature Source Temporal Pulse Rate 92 Respiratory Rate 14 Blood Pressure 109/76 Blood Pressure Mean 87 Pulse Ox 98 Oxygen Delivery Method Room Air MDM MDM MDM Narrative Medical decision making narrative: Differential diagnosis includes fracture, contusion, and sprain. X-rays of the left ankle will be obtained to assess for fracture. Radiography Diagnostic Testing: Clinical Impression(s) from Imaging Studies Ankle X-Ray 07/14/24 12:52 IMPRESSION: Negative for acute fracture or malalignment. Lateral soft tissue swelling. Mortise is congruent. Talar dome is intact. Reading [facility] X-[facility] of the left ankle were obtained. There are 3 views. On my independent interpretation, there is no acute fracture. There is no dislocation. There is lateral soft tissue swelling. Radiologist also interpreted the x-rays and agrees. Treatment and Re-Evaluation Narrative: Smoking cessation was discussed. Patient was advised of her findings. Patient was given an Aircast. Patient was instructed to ice and elevate the left ankle. Patient was instructed to take Tylenol or ibuprofen as needed for pain. Patient was instructed to return if worse in any way. Patient was instructed to follow-up with her primary care physician in 5 to 7 days. Patient understood and was agreeable with the plan. All questions were answered. Discharge Plan Triage Chief Complaint: Lower Extremity Injury ED Provider: Bishop Aleman Dx/Rx/DC Orders Clinical Impression: Left ankle sprain, Tobacco use Instructions: ED Ankle Sprain (Adult) Prescriptions: No Action meloxicam 15 mg tablet 15 mg PO DAILY Primary Care Provider: LANDY LOVE Referrals: LANDY LOVE CRNP [Primary Care Provider] - 5-7 Days Print Language: Japanese Disposition Disposition: Home, Self Care
--- NOTE | 2024-07-14 12:52 | RAD_ITS ---
PROCEDURE: Left ankle radiographs REASON FOR EXAM: Pain, injury TECHNIQUE: 3 views of the left ankle COMPARISON: None FINDINGS: See impression RAD/Ankle min 3 Views IMPRESSION: Negative for acute fracture or malalignment. Lateral soft tissue swelling. Mo rtise is congruent. Talar dome is intact. Reading Location: [place]
[2024-07-14 13:47] VITALS: BP 109/76; PULSE 92; RESP 14; TEMP 35.8; O2SAT 98
== END 2024-07-14 13:48 | disposition home or self-care (01) ==
PROVIDERS: Emergency Provider Emergency Medicine; PCP Nurse Practitioner Adult Health; Visit Provider Emergency Medicine
DX: S93.402A Sprain of unspecified ligament of left ankle, initial encounter (principal); F17.210 Nicotine dependence, cigarettes, uncomplicated; J45.909 Unspecified asthma, uncomplicated; K21.9 Gastro-esophageal reflux disease without esophagitis; X50.9XXA Other and unspecified overexertion or strenuous movements or postures, initial encounter
CPT/HCPCS: 73610; 99282